=== PATIENT | female | born 1955 | race Caucasian/White ===

== ENCOUNTER 2018-04-24 22:15 | Inpatient (IN) | payer OTHER ==
[~2018-04-24] VITALS: Ht 167.6 cm; Wt 72.0 kg
[~2018-04-24 22:15] MED LIST: AMOX500 PO; CHLO25 PO; HYDACE5 PO; LORA2 PO; PARO10 PO
[2018-04-25 01:21] LABS: BASOPHILS ABSOLUTE AUTO 0.03 K/mm3 (0.00-0.23); BASOPHILS PERCENT AUTO 1 % (0-2); EOSINOPHILS ABSOLUTE AUTO 0.11 K/mm3 (0.00-0.68); EOSINOPHILS PERCENT AUTO 2 % (0-6); Hematocrit 20.9 % (33.0-51.0); Hemoglobin 7.3 g/dL (11.5-16.0); IMMATURE GRAN ABSOLUTE AUTO 0.08 K/mm3 (0.00-0.10); IMMATURE GRAN PERCENT AUTO 2 % (0-1); LYMPHOCYTES ABSOLUTE AUTO 0.94 K/mm3 (0.84-5.20); LYMPHOCYTES PERCENT AUTO 19 % (21-46); MONOCYTES ABSOLUTE AUTO 0.23 K/mm3 (0.16-1.47); MONOCYTES PERCENT AUTO 5 % (4-13); Mean Corpuscular HGB 40.8 pg (26.0-34.0); Mean Corpuscular HGB Conc 34.9 g/dL (31.5-36.5); Mean Corpuscular Volume 117 fL (80-100); Mean Platelet Volume 9.7 fL (9.1-12.4); NEUTROPHILS ABSOLUTE AUTO 3.53 K/mm3 (1.96-9.15); NEUTROPHILS PERCENT AUTO 72 % (41-73); Platelet Count 122 K/mm3 (150-400); RDW Coefficient Variation 15.7 % (11.7-14.2); RDW Standard Deviation 65.2 fL (35.1-46.3); Red Blood Cell Count 1.79 M/mm3 (3.80-5.20); White Blood Cell Count 4.92 K/mm3 (4.00-11.30)
[2018-04-25 01:35] LABS: Alanine Aminotransfer (ALT/SGP 27 U/L (12-78); Albumin, Blood 3.1 g/dL (3.4-5.0); Alk Phos 82 U/L (50-136); Anion Gap 9 mmol/L (6-16); Aspartate Aminotrans (AST/SGOT 41 U/L (12-37); Bilirubin, Total 1.2 mg/dL (0.1-1.0); Blood Urea Nitrogen 13 mg/dL (8-24); Bun/Creatinine Ratio 28.7 (12.0-20.0); CO2, Blood 27 mmol/L (21-32); Calcium, Blood 8.4 mg/dL (8.5-10.1); Chloride, Blood 96 mmol/L (98-108); Creatinine, Blood 0.45 mg/dL (0.40-1.00); Ethanol (Alcohol), Blood, Med <3 mg/dL; Globulin, Blood 3.2 g/dL (2.2-4.0); Glomerular Filtration Rate >60 (60-); Glucose, Blood 307 mg/dL (70-99); Potassium, Blood 3.7 mmol/L (3.5-5.5); Sodium, Blood 132 mmol/L (136-145); Total Protein, Blood 6.3 g/dL (6.4-8.2)
[2018-04-25 02:05] LABS: Source, Urine Catheter
[2018-04-25 02:07] LABS: Bilirubin, Urine Neg (Neg); Blood, Urine 5+ (Neg); Glucose Qualitative, Urine 4+ (Neg); Ketones, Urine 1+ (Neg); Leukocyte Esterase, Urine 2+ (Neg); Nitrite, Urine Pos (Neg); Protein, Urine 3+ (Neg); Specific Gravity, Urine 1.015 (1.003-1.022); Urobilinogen, Urine NORM (Normal)
[2018-04-25 02:12] LABS: Appearance, Urine Hazy (Clear); Color, Urine Amber (P-Yellow); White Blood Cells, Urine TNTC /hpf (0-5)
[2018-04-25 02:14] LABS: Bacteria Many /hpf; Squamous Epithelial Cells Few /hpf (Few)
[2018-04-25 03:25] LABS: IMMATURE RETIC FRACTION 25.7 % (2.3-16.0); RETIC HGB EQUIVALENT 41.3 pg (28.20-36.60); RETICULOCYTE ABSOLUTE 0.0422 M/mm3 (0.0200-0.1100); RETICULOCYTE COUNT PERCENT 2.4 % (0.50-2.50)
[2018-04-25 03:39] LABS: Percent Saturation 56.2 % (15.0-50.0)
--- NOTE | 2018-04-25 04:35 | NUR ---
PT ARRIVAL PT ARRIVED ON UNIT VIA [facility], PT WAS ADMITTED DUE TO UTI, PT HAS HX OF ETOH ABUSE WITH HER LAST DRINK ON 04-24-18 AT APROX 0600. PT WAS TRANSFERED FROM [facility] TO BED WITH SLIDER SHEET. PT IS A&Ox4 BUT VERY SLEEPY FROM MEDICATION GIVEN IN THE ED. TELE WAS PLACED, NSR IN THE 80'S PT'S BP 111/56, PT HAS GENERALIZED TRACE EDEMA AND 1+ TO HER BLLE. PT'S L/S ARE CLEAR BUT DIM T/O, PT NEEDS 2L O2 VIA NC PRN DUE TO DEEP SLEEP AND MEDICATIONS. BT PRESENT AND HYPOACTIVE, ABD IS MOD DISTENDED AND SLIGHTLY FIRM TO PALP BUT NONTENDER. PT HAS VERY PAINFUL RASH/CELLULITIS TO HER EVA AREA, PT STATES THIS HAS BEEN GOING ON FOR MORE THAN 6 MOPNTHS ALONG WITH THE UTI SYMPTOMS. PT'S H&H WAS LOW (SEE LABS) 1 UNIT PRBCS WAS ORDERED TO BE GIVEN. BLOOD CONSENT WAS SIGNED BY PT. CALL LIGHT IN REACH, BED IS LOCKED AND LOW WILL CONTINUE TO MONITOR.
[2018-04-25 05:33] LABS: U Amphetamine Screen Not Detected; U Barbituate Screen Not Detected; U Benzodiazapine Screen Not Detected; U Buprenorphine Screen Not Detected; U Cannabinoids Screen Not Detected; U Cocaine Screen Not Detected; U Methadone Screen Not Detected; U Methamphetamine Screen Not Detected; U Opiates Screen Not Detected; U Oxycodone Screen Not Detected; U Phencyclidine Screen Not Detected; U Propoxyphene Screen Not Detected
--- NOTE | 2018-04-25 07:40 | NUR ---
SHIFT SUMMARY. NO ACUTE CHANGES NOTED SINCE ADMIT, PT IS GETTING 1 UNIT PRBCS WITH NO ISSUES. EVA CARE WAS DONE AFTER PT USED THE BSC TO VOID, EVA AREA IS VERY PAINFUL TO TOUCH, RED AND SWOLLEN. PT'S VS HAVE BEEN STABLE T/O SHIFT. PT HAS NEEDED 2 L O2 VIA NC PRN T/O SHIFT. CALL LIGHT IN REACH, BED IS LOCKED AND LOW WITH BED ALARM ON, WILL CONTINUE TO MONITOR UNTIL REPORT IS GIVEN TO ONCOMING RN.
[2018-04-25 08:49] LABS: Adenovirus Not Detected (NOT DETECT); Bordetella pertussis Not Detected (NOT DETECT); Coronavirus 229E Not Detected (NOT DETECT); Coronavirus HKU1 Not Detected (NOT DETECT); Coronavirus NL63 Not Detected (NOT DETECT); Coronavirus OC43 Not Detected (NOT DETECT); Human Metapneumovirus Not Detected (NOT DETECT); Human Rhinovirus/Enterovirus Not Detected (NOT DETECT); Influenza A Not Detected (NOT DETECT); Influenza A/2009-H1 Not Detected (NOT DETECT); Influenza A/H1 Not Detected (NOT DETECT); Influenza A/H3 Not Detected (NOT DETECT); Influenza B Not Detected (NOT DETECT); Parainfluenza Virus 1 Not Detected (NOT DETECT); Parainfluenza Virus 2 Not Detected (NOT DETECT); Parainfluenza Virus 3 Not Detected (NOT DETECT); Parainfluenza Virus 4 Not Detected (NOT DETECT); Respiratory Syncytial Virus Not Detected (NOT DETECT)
[2018-04-25 08:50] LABS: Chlamydophila pneumoniae Not Detected (NOT DETECT); Mycoplasma pneumoniae Not Detected (NOT DETECT)
[2018-04-25 14:35] LABS: Hematocrit 20.8 % (33.0-51.0); Hemoglobin 7.3 g/dL (11.5-16.0); Mean Corpuscular HGB 38.6 pg (26.0-34.0); Mean Corpuscular HGB Conc 35.1 g/dL (31.5-36.5); Mean Platelet Volume 9.8 fL (9.1-12.4); Platelet Count 108 K/mm3 (150-400); RDW Coefficient Variation 21.9 % (11.7-14.2); Red Blood Cell Count 1.89 M/mm3 (3.80-5.20); White Blood Cell Count 4.74 K/mm3 (4.00-11.30)
[2018-04-25 14:38] LABS: Mean Corpuscular Volume 110 fL (80-100)
[2018-04-25 15:00] LABS: Alanine Aminotransfer (ALT/SGP 23 U/L (12-78); Albumin, Blood 2.6 g/dL (3.4-5.0); Albumin/Globulin Ratio 0.9 (0.8-1.8); Alk Phos 66 U/L (50-136); Anion Gap 10 mmol/L (6-16); Aspartate Aminotrans (AST/SGOT 37 U/L (12-37); Bilirubin, Total 0.9 mg/dL (0.1-1.0); Blood Urea Nitrogen 12 mg/dL (8-24); Bun/Creatinine Ratio 24.8 (12.0-20.0); CO2, Blood 24 mmol/L (21-32); Calcium, Blood 7.7 mg/dL (8.5-10.1); Chloride, Blood 102 mmol/L (98-108); Creatinine, Blood 0.48 mg/dL (0.40-1.00); Globulin, Blood 2.8 g/dL (2.2-4.0); Glomerular Filtration Rate >60 (60-); Glucose, Blood 188 mg/dL (70-99); Potassium, Blood 3.5 mmol/L (3.5-5.5); Sodium, Blood 136 mmol/L (136-145); Total Protein, Blood 5.4 g/dL (6.4-8.2)
--- NOTE | 2018-04-25 15:19 | NUR ---
CALLS PLACED TO DR CORRIGAN 1400- Called Dr Corrigan to request godoy cathter due to extensive skin breakdown in perineal area, as well as pain medication so pt will tolerated catheter insertion. New orders given. 1500- Call placed to Dr Corrigan with lab results, including hemoglobin and hematorcrit. At this time pt has no visible signs of bleeding. Will continue to closely monitor. Requested order for psych consult to evaluate pt's decision making capabilities. New orders given.
--- NOTE | 2018-04-25 15:24 | NUR ---
CONCERNS PRESENTED BY FAMILY AND FRIENDS OF PT Pt's daughter, Luzmaria ([phone]) called unit to request update on patient. The pt gave verbal consent for this RN to speak to Luzmaria. Luzmaria stated that she is concerned about pt returing to her previous living situation. Pt lives alone at home. Pt's spouse is currently hospitalized at [facility]. Luzmaria states concerns that the pt is not taking care of herself and is not able to make her own decisions. Luzmaria states that the pt drinks, smokes cigarettes, and does not eat. She states the pt has not eaten in over a year. Luzmaria states that she or Анна (another daughter of patient) live in [place], but are considering coming to [place] to visit the patient. Luzmaria told this RN that she or Анна are interested in becoming the pt's power of deputy attorney general. Two friends of the patient, Ambreen ([phone]) and Nick Garcia ([phone]) visited the pt for about 45 minutes. The pt gives verbal consent for this RN to speak to Ambreen and Nick Garcia, she then adds "These are two of my favorite people". Ambreen and Nick Garcia state that they know the pt because they used to work with her at the [employer]. They state that they have been concerned for the pt's wellbeing for quite some time. They tell this RN that the pt "has not eaten in over a year" and only drinks alcohol. They state they have asked the pt to go to the hospital several times and the pt has refused up until yesterday. They tell this RN they have asked for wellfare checks on the pt several times because they have been concerned for their wellbeing. They state the pt has not showered in over 6 months due to fear of falling. Patti from social work supervisor notified of concerns expressed by the visitor and by the pt's daughters.
--- NOTE | 2018-04-25 19:03 | NUR ---
SHIFT SUMMARY Pt not medicated for alcohol withdrawal this shift. Pt oriented to self and place. Does not know exact date but verbalizes that it is "April" and "2018". Pt is tremulous, however she states this is baseline for her. Pt on room air for entire shift. Pt does not have any signs of bleeding at this time. Pt has profound perineal excoriations that have photgraphic documentation in the chart. Excoriations have been cleansed. Perineal area cleaned with Skintegrity wound cleanser and sterile gauze. Labial and pubic excoriations are open to air. Excoriation to gluteal fold cleaned and then nonadherent supra-absorbant mepilex placed in fold. Stiles catheter placed to facilitate healing of profound perineal excoriations, as pt is incontinent of urine at baseline. Pt had a shower early today. QUAIL FARMER placed detangler in the patient's hair, along with conditioner to remove matted hair. Attempts to remove tangles was futile, therefore the hair was cut with scissors. Pt was agreeable to having hair cut.
--- NOTE | 2018-04-26 00:22 | NUR ---
PHYSICIAN COMMUNICATION DR. VARGHESE NOTIFIED CRANBERRY COLORED URINE NOTED. PAIN MANAGEMENT DISCUSSED. ORDERS ENTERED. WCTM UNTIL REPORT TO DAY SHIFT RN.
--- NOTE | 2018-04-26 06:46 | NUR ---
SHIFT SUMMARY PT A&O X4 T/O SHIFT. HIGHEST CIWA 6. PAIN IN BACK AND EVA-AREA MANAGE PER EMAR. EVA-AREA OPEN TO AIR. WEANED TO 1.5 L O2 THIS AM. PT BED MOBILE, REPOSITIONED SELF AND REPOSITIONED WITH ASSIST T/O SHIFT. UP TO BSC WITH ASSIT X1. PAUL PATENT; URINE CHANGED FROM CRISTIAN TO CRANBERRY WITH SMALL CLOTS BACK TO CRISTIAN/TEA; SEE PHYSICIAN COMMUNICATION NOTE. PT QUITE WITH CALL LIGHT IN REACH; AT THIS TIME.
[2018-04-26 07:32] LABS: Hematocrit 20.5 % (33.0-51.0); Hemoglobin 7.1 g/dL (11.5-16.0); Mean Corpuscular HGB 37.8 pg (26.0-34.0); Mean Corpuscular HGB Conc 34.6 g/dL (31.5-36.5); Mean Corpuscular Volume 109 fL (80-100); Mean Platelet Volume 10.3 fL (9.1-12.4); Platelet Count 102 K/mm3 (150-400); RDW Coefficient Variation 21.4 % (11.7-14.2); RDW Standard Deviation 83.2 fL (35.1-46.3); Red Blood Cell Count 1.88 M/mm3 (3.80-5.20); White Blood Cell Count 3.71 K/mm3 (4.00-11.30)
--- NOTE | 2018-04-26 10:30 | NUR ---
O2 NEEDS PT TOLERATING 1L NC WELL. SATS 92-95%. ATTEMPTED RA, PATIENT MAINTAINED FOR 3 MINS BEFORE DESATTING TO 88% WHILE AWAKE AND ALERT.
--- NOTE | 2018-04-26 11:04 | NUR ---
Advance Directive education/Spiritual care visit conducted. Patient was sitting up in bed and alert when I entered the patient's room. I discussed with patient the importance and process of an advance directive. Patient stated that she is not interested in talking about this at this time but realizes that it will be an important conversation to have with her going forward. I then focused on the emotional/spiritual needs of the patient. Patient began to cry and told me that there are many things that she needs to own concerning the damage she has caused for herself and those close to her (mostly her ). Patient also said that her was in another hospital having surgery this day. I listened empathically, quoted scriptures that speak of God's jasmine, help and love. I also provided pastoral cousel, companionship and prayer. Patient responded well and displayed evidence of restored son and hope. Patient blessed me for the work I do. I expressed my gratitude. prayer
--- NOTE | 2018-04-26 18:31 | NUR ---
SHIFT SUMMARY PT WAS ALERT AND AWAKE FOR HALF OF SHIFT BUT THIS AFTERNOON HAS BEEN MORE DROWSY AND REQUESTING TO NAP. ABD HAS BECOME MORE DISTENDED BUT STILL SOFT. ATTEMPTED TO HAVE BM ON BSC BUT UNSUCCESSFUL. NO S/S OF ETOH W/D. EVA AREA VERY TENDER.
[2018-04-27 04:04] LABS: Hematocrit 25.4 % (33.0-51.0); Hemoglobin 8.7 g/dL (11.5-16.0); Mean Corpuscular HGB 36.7 pg (26.0-34.0); Mean Corpuscular HGB Conc 34.3 g/dL (31.5-36.5); Mean Corpuscular Volume 107 fL (80-100); Mean Platelet Volume 10.3 fL (9.1-12.4); NRBC ABSOLUTE 0.02 K/mm3 (0.00-0.02); NRBC Auto 0.5 /100 WBC (0.0-0.2); Platelet Count 109 K/mm3 (150-400); RDW Coefficient Variation 22.4 % (11.7-14.2); RDW Standard Deviation 84.9 fL (35.1-46.3); Red Blood Cell Count 2.37 M/mm3 (3.80-5.20); White Blood Cell Count 3.95 K/mm3 (4.00-11.30)
[2018-04-27 04:23] LABS: Anion Gap 7 mmol/L (6-16); Blood Urea Nitrogen 9 mg/dL (8-24); Bun/Creatinine Ratio 18.9 (12.0-20.0); CO2, Blood 28 mmol/L (21-32); Calcium, Blood 7.6 mg/dL (8.5-10.1); Chloride, Blood 104 mmol/L (98-108); Creatinine, Blood 0.48 mg/dL (0.40-1.00); Glomerular Filtration Rate >60 (60-); Glucose, Blood 196 mg/dL (70-99); Potassium, Blood 3.3 mmol/L (3.5-5.5); Sodium, Blood 139 mmol/L (136-145)
--- NOTE | 2018-04-27 06:48 | NUR ---
PCU NOC SHIFT SUMMARY PATIENT ALERT AND ORIENTED TO SELF AND LOCATION. PATIENT VERY QUIET AND DOES NOT INTERACT WHEN PROMPTED WITH DIRECT ANSWERS. PATIENT IS DECONDITIONED WITH POOR HEALTH HYGIENE NOTED: MISSING, BROKE TEETH; EXCORIATED VAGINAL AND GROIN FOLEDS (INNER AND OUTER); BRUISING ON ALL EXTREMETIES; DECREASED STRENGTH. PATIENTS CIWA NEGATIVE T/O SHIFT. PATIENT FOLLOWS DIRECTION WELL. VSS. NO ACUTE FINDINGS NOTED T/O SHIFT.
--- NOTE | 2018-04-27 10:45 | NUR ---
This morning, the pt was having some significant anxiety, expressed verbally and she appeared nervous. scene shifter stated during bedside report that it was the "most anxious that she has appeared all shift" at that time. The pt also was noted to have a very noticeable tremor in her hands. CIWA was measured at 5, so I did administer Librium per prn orders with her morning medications during breakfast time. The pt had also c/o cramps in her right foot, which were somewhat relieved with some foot exercises which I did with her while she was still in the bed. However, noted also that the pt's potassium level was low this morning and Dr. Corrigan had already ordered an oral potassium replacement, so I explained to the pt that this would probably also help to relieve her cramps. At 1000 I met two of the patient's daughters who are here from [place]. Extensive conversation with them, covering information about pt's current medications (specifically insulin, ativan, fentanyl, lidocaine patch, corticosteroid cream, librium) and the indications and rationale for their prn use, and some of the pt's medical problems such as elevated glucose and possible diabetes per Dr. Corrigan, the hospitalist. The daughters explained to me that the pt has been an alcoholic all of their lives, and has suffers from severe anxiety. We discussed the treatment plan just briefly.
--- NOTE | 2018-04-27 15:20 | NUR ---
The pt appears to be sleeping very comfortably. Her respirations are even and unlabored. Her daughter Анна, who told me she is a respiratory therapist, noted this morning the pt was tachypneic. Анна tells me that the pt has been smoking for many years, and she suspects that she has COPD. The question also of the tachypnea being related to the pt's history of anxiety, and also expression of anxious feelings this morning was also discussed with family this morning. At this time, the pt's respirations are even, unlabored, belly breathing, and at 28-32/minute, with HOB at 15 degrees. No apneic periods noted.
--- NOTE | 2018-04-27 15:30 | NUR ---
1200: IV Dressing noted to be loose, and coming up at the edges. Insertion site is not compromised, but tubing is kinked. Removed old dressing and redressed the site using aseptic technique. The pt tolerated well as she had just also received pain medication.
--- NOTE | 2018-04-27 22:00 | NUR ---
PCU TRANSFER TO MEDICAL FLOOR RM 302 PATIENT ALERT AND ORIENTED TO SELF, LOCATION AND MONTH. PATIENT DENIES ANY PAIN. PAUL CATH DRAINING CLOUDY YELLOW URINE WITH SEDIMENT AND AT TIME DARK RED CLOTS - IRRIGATED PAUL WITH 20 CC'S NS. PATIENTS VSS. PATIENT AND FAMILY CALLED EDUCATED ON TRANSFER TO ROOM 302. PATIENT LEFT UNIT IN NO ACUTE DISTRESS. REPORTED OFF TO MEDICAL FLOOR RN.
[2018-04-28 04:57] LABS: Hematocrit 29.4 % (33.0-51.0); Hemoglobin 9.7 g/dL (11.5-16.0)
[2018-04-28 05:30] LABS: Anion Gap 8 mmol/L (6-16); Blood Urea Nitrogen 6 mg/dL (8-24); Bun/Creatinine Ratio 13.6 (12.0-20.0); CO2, Blood 27 mmol/L (21-32); Chloride, Blood 103 mmol/L (98-108); Creatinine, Blood 0.44 mg/dL (0.40-1.00); Glomerular Filtration Rate >60 (60-); Glucose, Blood 179 mg/dL (70-99); Magnesium, Blood 1.8 mg/dL (1.6-2.4); Phosphorus, Blood 2.4 mg/dL (2.5-4.9); Potassium, Blood 3.6 mmol/L (3.5-5.5); Sodium, Blood 138 mmol/L (136-145)
--- NOTE | 2018-04-28 06:19 | NUR ---
SHIFT SUMMARY PT TRANSFERRED TO ROOM APPROX 2150. SBA TO BED FROM BED. PAUL DRAINING DARK CONCENTRATED-LOOKING URINE. ENCOURAGED MORE ORAL INTAKE. AFFECT ANXIOUS FEARFUL. C/O IN EVA AREA AND MEDICATED PER EMAR. SHE WAS ABLE TO DOZE ON AND OFF T/O NOC. CALL LIGHT IN REACH
[2018-04-28 09:10] LABS: HBSAG SCREEN Negative (Negative); HEP B CORE AB, TOT Negative (Negative); HEP C VIRUS AB <0.1 (0.0-0.9)
--- NOTE | 2018-04-28 18:19 | NUR ---
SHIFT SUMMARY. A&OX2-3 PLEASANT AND COOPERATIVE. PT IS AWARE OF LIMITATIONS ALTHOUGH HAS OCCASSIONAL FORGETFULLNESS, BED ALARM ACTIVATED FOR SAFETY. PT WITH C/O PAIN TO LOWER BACK THIS AM, RELIEVED WITH APAP AND LIDOCAINE PATCH. PT DENIES SOB, N/V. PT RECIEVED SHOWER TODAY. DAUGHTERS AT BEDSIDE AND REPORT THAT PT HAS ALOT OF ANXIETY ABOUT SHOWERING AND STOPPED TAKING SHOWERS 6 MONTHS AGO. RECEIVED ORDER FOR PRN ATIVAN FOR ANXIETY, GIVEN JUST PRIOR TO SHOWER. DAUGHTERS AT BEDSIDE PERIODICALLY THROUGHOUT DAY, THEY ARE HEADED BACK HOME TO [place] TOMORROW. NO NEW CHANGES.
[2018-04-29 04:56] LABS: BASOPHILS ABSOLUTE AUTO 0.05 K/mm3 (0.00-0.23); BASOPHILS PERCENT AUTO 1 % (0-2); EOSINOPHILS ABSOLUTE AUTO 0.33 K/mm3 (0.00-0.68); EOSINOPHILS PERCENT AUTO 6 % (0-6); Hematocrit 27.5 % (33.0-51.0); IMMATURE GRAN ABSOLUTE AUTO 0.74 K/mm3 (0.00-0.10); IMMATURE GRAN PERCENT AUTO 12 % (0-1); LYMPHOCYTES ABSOLUTE AUTO 1.14 K/mm3 (0.84-5.20); LYMPHOCYTES PERCENT AUTO 19 % (21-46); MONOCYTES ABSOLUTE AUTO 0.53 K/mm3 (0.16-1.47); MONOCYTES PERCENT AUTO 9 % (4-13); Mean Corpuscular HGB 36.6 pg (26.0-34.0); Mean Corpuscular HGB Conc 32.7 g/dL (31.5-36.5); Mean Platelet Volume 9.9 fL (9.1-12.4); NEUTROPHILS ABSOLUTE AUTO 3.23 K/mm3 (1.96-9.15); NEUTROPHILS PERCENT AUTO 54 % (41-73); NRBC ABSOLUTE 0.21 K/mm3 (0.00-0.02); NRBC Auto 3.5 /100 WBC (0.0-0.2); Platelet Count 106 K/mm3 (150-400); RDW Coefficient Variation 21.5 % (11.7-14.2); RDW Standard Deviation 86.5 fL (35.1-46.3); Red Blood Cell Count 2.46 M/mm3 (3.80-5.20); White Blood Cell Count 6.02 K/mm3 (4.00-11.30)
[2018-04-29 04:57] LABS: Mean Corpuscular Volume 112 fL (80-100)
[2018-04-29 05:17] LABS: BAND PERCENT MAN 5 % (0-8); BASOPHILS ABSOLUTE MAN 0.06 K/mm3 (0.00-0.23); BASOPHILS PERCENT MAN 1 % (0-2); EOSINOPHILS ABSOLUTE MAN 0.18 K/mm3 (0.00-0.68); EOSINOPHILS PERCENT MAN 3 % (0-6); LYMPHOCYTES ABSOLUTE MAN 0.78 K/mm3 (0.84-5.20); LYMPHOCYTES PERCENT MAN 13 % (21-46); METAMYELOCYTE ABSOLUTE MAN 0.06 K/mm3 (0.00-0.00); METAMYELOCYTE PERCENT MAN 1 % (0-0); MONOCYTES ABSOLUTE MAN 0.24 K/mm3 (0.16-1.47); MONOCYTES PERCENT MAN 4 % (4-13); MYELOCYTE ABSOLUTE MAN 0.06 K/mm3 (0.00-0.00); MYELOCYTE PERCENT MAN 1 % (0-0); NEUTROPHILS ABSOLUTE MAN 4.57 K/mm3 (1.96-9.15); SEG NEUTROPHILS PERCENT MAN 71 % (41-73); TOTAL CELLS COUNTED 100
[2018-04-29 05:18] LABS: PROMYELOCYTE ABSOLUTE MAN 0.06 K/mm3 (0.00-0.00); PROMYELOCYTE PERCENT MAN 1 % (0-0)
--- NOTE | 2018-04-29 06:13 | NUR ---
SHIFT SUMMARY PT ANXIOUS AND SLOW TO RESPOND. PAUL WAS DRAINING 100CC BLOOD. BLADDER SCAN DIDN'T SHOW ANY URINE IN BLADDER. IRRIGATED PAUL AND A COUPLE BLOOD CLOT STRANDS CAME OUT. DR PENA ORDERED 1 LIT @ 100 OT. PAUL DRAINING DARK RED URINE. SHE WAS ABLE TO SLEEP AFTER GETTING PO ATIVAN FOR ANXIETY. BED ALARM IN USE CALL LIGHT IN REACH
--- NOTE | 2018-04-29 11:27 | NUR ---
NOTIFIED DR. FAULKNER OF BLOOD IN CATHETER, RECIEVED ORDER TO FLUSH CATHETER WITH 500ML OF STERILE WATER, PT WAS ONLY ABLE TO TOLERATE 60ML FLUSH.
--- NOTE | 2018-04-29 16:54 | NUR ---
SHIFT SUMMARY. PT REPORTS THAT PAIN AT EVA AREA, URETHRA AREA, AND LOWER BACK HAS IMPROVED FROM YESTERDAY. PT REQUIRED ONE DOSE OF APAP AND REPORTED IMPROVEMENT OF PAIN. NO N/V, SOB. PT WITH SOME ANXIETY AT TIMES, DR. FAULKNER STARTED LIBRIUM, 10MG PO TID, PT APPEARS MORE CALM AFTER FIRST DOSE. DAUGHTERS HAVE RETURNED TO [place] TODAY. NASEEM, THE PT'S OLDEST DAUGHTER AND WHO REQUESTS TO BE PT'S GUARDIAN, REPORTS THAT SHE WILL RETURN MONDAY OR MONDAY FOR ADVANCED CARE PLANNING WITH [employer]OO'S PHONE NUMBER IS [phone]. PT CONTINUES WITH BLOOD TINGED URINE WITH SMALL CLOTS. PT DID NOT TOLERATE FLUSH WITH 60ML STERILE WATER. NO OTHER CHANGES.
[2018-04-30 05:03] LABS: Hemoglobin 8.5 g/dL (11.5-16.0); Mean Corpuscular HGB 36.6 pg (26.0-34.0); Mean Corpuscular HGB Conc 32.7 g/dL (31.5-36.5); Mean Corpuscular Volume 112 fL (80-100); Mean Platelet Volume 9.6 fL (9.1-12.4); NRBC ABSOLUTE 0.09 K/mm3 (0.00-0.02); NRBC Auto 1.5 /100 WBC (0.0-0.2); Platelet Count 109 K/mm3 (150-400); RDW Coefficient Variation 22.4 % (11.7-14.2); RDW Standard Deviation 90.1 fL (35.1-46.3); Red Blood Cell Count 2.32 M/mm3 (3.80-5.20); White Blood Cell Count 5.83 K/mm3 (4.00-11.30)
--- NOTE | 2018-04-30 05:21 | NUR ---
SHIFT SUMMARY PT A/O SLOW TO RESPOND. SBA TO BA FOR SMALL FORMED BM. GET SOB C EXCERTION. SHE WAS ABLE TO SLEEP ON AND OFF T/O NIGHT. CALL LIGHT IN REACH
[2018-04-30 05:31] LABS: Alanine Aminotransfer (ALT/SGP 19 U/L (12-78); Albumin, Blood 2.5 g/dL (3.4-5.0); Albumin/Globulin Ratio 0.9 (0.8-1.8); Alk Phos 63 U/L (50-136); Anion Gap 6 mmol/L (6-16); Aspartate Aminotrans (AST/SGOT 24 U/L (12-37); Bilirubin, Total 0.7 mg/dL (0.1-1.0); Blood Urea Nitrogen 6 mg/dL (8-24); Bun/Creatinine Ratio 15.7 (12.0-20.0); CO2, Blood 27 mmol/L (21-32); Calcium, Blood 7.8 mg/dL (8.5-10.1); Chloride, Blood 106 mmol/L (98-108); Creatinine, Blood 0.38 mg/dL (0.40-1.00); Globulin, Blood 2.9 g/dL (2.2-4.0); Glomerular Filtration Rate >60 (60-); Glucose, Blood 115 mg/dL (70-99); Magnesium, Blood 1.8 mg/dL (1.6-2.4); Potassium, Blood 3.6 mmol/L (3.5-5.5); Sodium, Blood 139 mmol/L (136-145); Total Protein, Blood 5.4 g/dL (6.4-8.2)
[2018-04-30 05:32] LABS: BAND PERCENT MAN 5 % (0-8); BASOPHILS ABSOLUTE MAN 0.17 K/mm3 (0.00-0.23); BASOPHILS PERCENT MAN 3 % (0-2); EOSINOPHILS ABSOLUTE MAN 0.23 K/mm3 (0.00-0.68); EOSINOPHILS PERCENT MAN 4 % (0-6); LYMPHOCYTES ABSOLUTE MAN 1.04 K/mm3 (0.84-5.20); LYMPHOCYTES PERCENT MAN 18 % (21-46); METAMYELOCYTE ABSOLUTE MAN 0.17 K/mm3 (0.00-0.00); METAMYELOCYTE PERCENT MAN 3 % (0-0); MONOCYTES ABSOLUTE MAN 0.58 K/mm3 (0.16-1.47); MONOCYTES PERCENT MAN 10 % (4-13); MYELOCYTE ABSOLUTE MAN 0.23 K/mm3 (0.00-0.00); MYELOCYTE PERCENT MAN 4 % (0-0); NEUTROPHILS ABSOLUTE MAN 3.38 K/mm3 (1.96-9.15); SEG NEUTROPHILS PERCENT MAN 53 % (41-73); TOTAL CELLS COUNTED 100
--- NOTE | 2018-04-30 19:23 | NUR ---
SUMM- PT A/O X3, NOT ORIENTED TO DETAILS OF DATE IN APRIL. WORKED WITH PT/OT TODAY, IS SEVERELY WEAK. TOLERATING FOOD AND FLUIDS PUREED DIET RELATED TO POOR DENTAL. PILLS CRUSHED, TAKES A LONG TIME TO SWALLOW FOOD. PAIN RELATED TO EXCORIATION IN GROIN AREA, REDDENED AND INFLAMMED, NO OPEN AREAS. PAUL CATH CARE, AND AQUAPHOR TO AREA ORDERED. TYLENOL GIVEN FOR PAIN WITH MIN EFFECT. PAUL CONT WITH CRANBERRY COLOR URINE AND OCC SMALL CLOT. OCC PERIODS OF ANXIETY, LIBRIUM SEEMS TO HELP. REPORTED TO NOC RN.
--- NOTE | 2018-05-01 06:22 | NUR ---
SHIFT SUMMARY: PT CONT TO HAVE CRISTIAN, DARK URINE c CLOTS. PT IS A&O X 3, ANXIOUS. BECOMES SOB c EXERTION, TACHYPNEIC. 2L VIA NC PLACED, LS CLEAR. POOR DENTITION, PT REPORTS PAIN EATING AND SWALLOWING. PAUL IN PLACE TO PROTECT EVA AREA SKIN, SKIN IS RED, INFLAMED, OPEN-WOUND. NYSTATIN AND AQUACEL APPLIED PER ORDERS. MEDS CRUSHED IN JOHN PUDDING; CBG ACHS; 145 TONIGHT; NO COV INDICATED. NO OTHER CHANGES TO REPORT. WILL CONT TO MONITOR AND PROVIDE CARE UNTIL PRESUMED BY ONCOMING RN.
[2018-05-02 05:08] LABS: BASOPHILS ABSOLUTE AUTO 0.02 K/mm3 (0.00-0.23); BASOPHILS PERCENT AUTO 0 % (0-2); EOSINOPHILS ABSOLUTE AUTO 0.42 K/mm3 (0.00-0.68); EOSINOPHILS PERCENT AUTO 6 % (0-6); Hematocrit 30.9 % (33.0-51.0); Hemoglobin 9.6 g/dL (11.5-16.0); IMMATURE GRAN ABSOLUTE AUTO 0.12 K/mm3 (0.00-0.10); IMMATURE GRAN PERCENT AUTO 2 % (0-1); LYMPHOCYTES ABSOLUTE AUTO 0.86 K/mm3 (0.84-5.20); LYMPHOCYTES PERCENT AUTO 11 % (21-46); MONOCYTES ABSOLUTE AUTO 0.77 K/mm3 (0.16-1.47); MONOCYTES PERCENT AUTO 10 % (4-13); Mean Corpuscular HGB Conc 31.1 g/dL (31.5-36.5); Mean Corpuscular Volume 113 fL (80-100); Mean Platelet Volume 10.2 fL (9.1-12.4); NEUTROPHILS ABSOLUTE AUTO 5.36 K/mm3 (1.96-9.15); NEUTROPHILS PERCENT AUTO 71 % (41-73); Platelet Count 149 K/mm3 (150-400); RDW Coefficient Variation 21.3 % (11.7-14.2); RDW Standard Deviation 88.1 fL (35.1-46.3); Red Blood Cell Count 2.74 M/mm3 (3.80-5.20); White Blood Cell Count 7.55 K/mm3 (4.00-11.30)
[2018-05-02 05:39] LABS: Alanine Aminotransfer (ALT/SGP 26 U/L (12-78); Albumin, Blood 2.7 g/dL (3.4-5.0); Albumin/Globulin Ratio 0.8 (0.8-1.8); Alk Phos 76 U/L (50-136); Anion Gap 7 mmol/L (6-16); Aspartate Aminotrans (AST/SGOT 45 U/L (12-37); Blood Urea Nitrogen 9 mg/dL (8-24); Bun/Creatinine Ratio 15.4 (12.0-20.0); CO2, Blood 26 mmol/L (21-32); Calcium, Blood 8.2 mg/dL (8.5-10.1); Chloride, Blood 106 mmol/L (98-108); Creatinine, Blood 0.59 mg/dL (0.40-1.00); Globulin, Blood 3.3 g/dL (2.2-4.0); Glomerular Filtration Rate >60 (60-); Glucose, Blood 101 mg/dL (70-99); Potassium, Blood 4.5 mmol/L (3.5-5.5); Sodium, Blood 139 mmol/L (136-145)
--- NOTE | 2018-05-02 06:08 | NUR ---
SHIFT SUMMARY: PAUL CATH DC'D EARLIER IN DAY. PT HAS FIRST POST-PAUL VOID @ 2100. CRANBERRY COLORED URINE. REDNESS AND SWELLING TO EVA AREA, LABIA, AND SKIN FOLDS. NO OPEN WOUNDS NOTED. LIDOCAINE GEL, AQUACEL, AND NYSTATIN CREAM ADMINISTERED PER ORDERS. TREATED FOR PAIN TO AFFECTED AREA c IV TORADOL 1X. ON 2L VIA NC PT BECOMES SOB c EXERTION AND ANXIOUS. EXP WHEEZE IN UPPER LUNG SANTIAGO; DIMINISHED IN THE BASES. WILL CONT TO MONITOR AND PROVIDE CARE UNTIL PRESUMED BY ONCOMING RN.
--- NOTE | 2018-05-02 19:25 | NUR ---
PT VERY DROWSY THIS A.M. AFTER BREAKFAST AND FELL ASLEEP AFTER LAYING BACK DOWN. ASSISTED TO BATHROOM AND WAS VERY WEAK AND ALMOST DIDN'T REACH TOILET THIS MORNING PRIOR TO BREAKFAST. MORE AWAKE THIS AFTERNOON AND ABLE TO CONVERSE WITH STAFF. EVA AREA REMAINS SWOLLEN AND RED AND TENDER. HAS SMALL CLOTS AND CRANBERRY COLORED URINE. INCREASED RESP NOTED TODAY BUT EVEN AND DENIES RESP DISTRESS. ABDOMEN APPEARS MORE DISTENDED THIS AFTERNOON AND SPOKE WITH MD ABOUT IT. SOFT AND NONTENDER AND TYMPANIC.
--- NOTE | 2018-05-03 06:12 | NUR ---
SHIFT SUMMARY PT VERY LETHARGIC SLEEPY. INCONT AT TIMES BUT ALSO CONT AND SBA C GAIT BELT TO BSC. URINE VERY DARK ORANGE IN COLOR. NO CLOTS. 1L O2 NC. SHE SLEPT THROUGH NIGHT. BED ALARM IN USE
[2018-05-03 08:00] LABS: BASOPHILS ABSOLUTE AUTO 0.03 K/mm3 (0.00-0.23); BASOPHILS PERCENT AUTO 0 % (0-2); EOSINOPHILS ABSOLUTE AUTO 0.45 K/mm3 (0.00-0.68); EOSINOPHILS PERCENT AUTO 5 % (0-6); Hematocrit 28.5 % (33.0-51.0); Hemoglobin 8.8 g/dL (11.5-16.0); IMMATURE GRAN ABSOLUTE AUTO 0.07 K/mm3 (0.00-0.10); IMMATURE GRAN PERCENT AUTO 1 % (0-1); LYMPHOCYTES ABSOLUTE AUTO 0.74 K/mm3 (0.84-5.20); LYMPHOCYTES PERCENT AUTO 8 % (21-46); MONOCYTES ABSOLUTE AUTO 0.93 K/mm3 (0.16-1.47); MONOCYTES PERCENT AUTO 11 % (4-13); Mean Corpuscular HGB 34.2 pg (26.0-34.0); Mean Corpuscular HGB Conc 30.9 g/dL (31.5-36.5); Mean Corpuscular Volume 111 fL (80-100); Mean Platelet Volume 9.9 fL (9.1-12.4); NEUTROPHILS ABSOLUTE AUTO 6.64 K/mm3 (1.96-9.15); NEUTROPHILS PERCENT AUTO 75 % (41-73); Platelet Count 233 K/mm3 (150-400); RDW Coefficient Variation 20.8 % (11.7-14.2); Red Blood Cell Count 2.57 M/mm3 (3.80-5.20); White Blood Cell Count 8.86 K/mm3 (4.00-11.30)
[2018-05-03 08:25] LABS: Alanine Aminotransfer (ALT/SGP 23 U/L (12-78); Albumin, Blood 2.4 g/dL (3.4-5.0); Albumin/Globulin Ratio 0.7 (0.8-1.8); Alk Phos 65 U/L (50-136); Anion Gap 5 mmol/L (6-16); Aspartate Aminotrans (AST/SGOT 22 U/L (12-37); Bilirubin, Total 1.2 mg/dL (0.1-1.0); Blood Urea Nitrogen 11 mg/dL (8-24); Bun/Creatinine Ratio 22.4 (12.0-20.0); CO2, Blood 28 mmol/L (21-32); Chloride, Blood 107 mmol/L (98-108); Creatinine, Blood 0.49 mg/dL (0.40-1.00); Globulin, Blood 3.3 g/dL (2.2-4.0); Glomerular Filtration Rate >60 (60-); Glucose, Blood 121 mg/dL (70-99); Sodium, Blood 140 mmol/L (136-145); Total Protein, Blood 5.7 g/dL (6.4-8.2)
--- NOTE | 2018-05-03 18:34 | NUR ---
SHIFT SUMMARY PT MORE AWAKE TODAY AND ABLE TO FEED HERSELF WITH LESS TROUBLE. REMAINS MORE WEAK AND USING BEDSIDE COMMODE WITH 2 PEOPLE RATHER THAN TO TOILET WITH FWW. RESP IMPROVING IN A.M. BUT WORSENED THIS AFTERNOON. HEART RATE AND TEMP UP WELL. ROOM VERY WARM AND PT VERY WARM WELL. TYLENOL GIVEN AND MD NOTIFIED OF FEVER. BLOOD CULTURES DRAWN. VS MONITERED AND VEW SCORE WENT DOWN TO 2 WITH TEMP IMPROVING AND RESP. VERY ALERT AT SUPPERTIME AND HAVING A FULL CONVERSATION WITH STAFF. SKIN COOL WELL.
[2018-05-04 04:26] LABS: BASOPHILS ABSOLUTE AUTO 0.06 K/mm3 (0.00-0.23); BASOPHILS PERCENT AUTO 1 % (0-2); EOSINOPHILS PERCENT AUTO 7 % (0-6); Hemoglobin 8.4 g/dL (11.5-16.0); IMMATURE GRAN ABSOLUTE AUTO 0.06 K/mm3 (0.00-0.10); IMMATURE GRAN PERCENT AUTO 1 % (0-1); LYMPHOCYTES ABSOLUTE AUTO 0.82 K/mm3 (0.84-5.20); LYMPHOCYTES PERCENT AUTO 11 % (21-46); MONOCYTES ABSOLUTE AUTO 0.87 K/mm3 (0.16-1.47); MONOCYTES PERCENT AUTO 12 % (4-13); Mean Corpuscular HGB 33.3 pg (26.0-34.0); Mean Corpuscular HGB Conc 31.1 g/dL (31.5-36.5); Mean Platelet Volume 9.6 fL (9.1-12.4); NEUTROPHILS PERCENT AUTO 68 % (41-73); Platelet Count 286 K/mm3 (150-400); RDW Coefficient Variation 20.8 % (11.7-14.2); RDW Standard Deviation 80.1 fL (35.1-46.3); Red Blood Cell Count 2.52 M/mm3 (3.80-5.20); White Blood Cell Count 7.21 K/mm3 (4.00-11.30)
[2018-05-04 04:30] LABS: Mean Corpuscular Volume 107 fL (80-100)
[2018-05-04 04:47] LABS: Alanine Aminotransfer (ALT/SGP 21 U/L (12-78); Albumin, Blood 2.4 g/dL (3.4-5.0); Albumin/Globulin Ratio 0.7 (0.8-1.8); Alk Phos 69 U/L (50-136); Anion Gap 7 mmol/L (6-16); Aspartate Aminotrans (AST/SGOT 25 U/L (12-37); Bilirubin, Total 0.7 mg/dL (0.1-1.0); Blood Urea Nitrogen 12 mg/dL (8-24); Bun/Creatinine Ratio 22.2 (12.0-20.0); CO2, Blood 26 mmol/L (21-32); Calcium, Blood 7.8 mg/dL (8.5-10.1); Chloride, Blood 106 mmol/L (98-108); Creatinine, Blood 0.54 mg/dL (0.40-1.00); Globulin, Blood 3.3 g/dL (2.2-4.0); Glomerular Filtration Rate >60 (60-); Glucose, Blood 134 mg/dL (70-99); Potassium, Blood 3.6 mmol/L (3.5-5.5); Sodium, Blood 139 mmol/L (136-145); Total Protein, Blood 5.7 g/dL (6.4-8.2)
--- NOTE | 2018-05-04 06:01 | NUR ---
SHIFT SUMMARY PT MUCH MORE AWAKE AND ALERT COMPARED TO YESTERDAY. STILL KIND OF SLOW TO RESPOND BUT QUICKER THAN THE NIGHT BEFORE. INCONT AT TIMES OF LIQUID STOOL. 2 PERSON SBA Nick WALKER TO BSC. NO CLOTS SEEN IN URINE. 2L O2 NC. CALL LIGHT IN REACH.
--- NOTE | 2018-05-04 17:07 | NUR ---
PT REQUESTING THAT HER MEDICATIONS BE CRUSHED VERY FINE, EVEN SMALL PIECES CAN BOTHER HER. WILL PASS ALONG TO ONCOMING RN. NO ACUTE CHANGES NOTED THIS SHIFT, WILL CONTINUE TO MONITOR AND REPORT TO ONCOMING RN
[2018-05-05 00:44] LABS: Source, Urine Clean Catch
[2018-05-05 00:50] LABS: Appearance, Urine Cloudy (Clear); Bilirubin, Urine Neg (Neg); Blood, Urine 5+ (Neg); Color, Urine Yellow (P-Yellow); Glucose Qualitative, Urine Neg (Neg); Ketones, Urine Neg (Neg); Leukocyte Esterase, Urine 3+ (Neg); Nitrite, Urine Neg (Neg); Protein, Urine 3+ (Neg); Urobilinogen, Urine 1+ (Normal)
[2018-05-05 01:08] LABS: Bacteria Few /hpf; Red Blood Cells, Urine TNTC /hpf (0-2); Squamous Epithelial Cells Not Seen /hpf (Few); White Blood Cells, Urine TNTC /hpf (0-5)
--- NOTE | 2018-05-05 06:40 | NUR ---
SHIFT SUMMARY: PT IS ALERT AND ORIENTED. PT IS CALM AND COOPERATIVE WITH CARE. PT CALLS APPROPRIATELY. PT IS A ONE PERSON ASSIST TO THE BATHROOM. PT DENIES PAIN, NAUSEA, AND VOMITING. PT IS SOB UPON EXERTION. PT SLEPT INTERMITTENTLY THROUGHOUT THE NIGHT. NO ACUTE CHANGES OR COMPLICATIONS THIS SHIFT. BED IN LOW POSITION, CALL LIGHT WITHIN REACH. WILL REPORT TO DAY NURSE.
--- NOTE | 2018-05-05 15:47 | NUR ---
SUMMARY PT IS A/O X4, SOMEWHAT PALE, STATE WEAK/FATIGUED. AFFECT SOMEWHAT FLAT, KIND/COOPERATIVE. GAIT WEAK, 1 ASSIST W FWW. SHE HAD H/A THIS AM, RELIEVED W TYLENOL. PSYCHOLOGICAL OPERATIONS ASSIST HER TO SHOWER, SHE WAS UP IN CHAIR FOR AWHILE DURING LUNCH HRS. PHYTHER IN FOR EVAL/TX. NYSTATIN & AQUAPHOR APPLIED TO EVA AREA RASH/REDNESS, APPEARS IMPROVING. DAUGHTER IN TO VISIT TODAY, SUPPORTIVE. VSS.
--- NOTE | 2018-05-06 04:30 | NUR ---
SHIFT SUMMARY: PT IS ALERT AND ORIENTED. PT IS CALM AND COOPERATIVE WITH CARE. PT CALLS APPROPRIATELY. PT IS A STANDBY ASSIST TO THE BATHROOM. FAMILY IN VISITING AT THE START OF THE NIGHT. PT REPORTED HEADACHE, GAVE PRN TYLENOL. PT REPORTS SOB UPON EXERTION, 1 L O2, TITRATING DOWN. PT DENIES NAUSEA AND VOMITING. PT SLEPT MUCH OF THE NIGHT. NO ACUTE CHANGES OR COMPLICATIONS THIS SHIFT.
--- NOTE | 2018-05-06 15:35 | NUR ---
SUMMARY PT HAS BEEN A/O X4 T/O DAY. SHE APPEARS SOMEWHAT WEAK/FATIGUED HOWEVER STATES FEELING SOMEWHAT BETTER/IMPROVED. SHE HAS BEEN UP TO CHAIR FOR MEALS TODAY, 1 ASSIST W FWW TO BR. TITRATED OFF O2 THIS AFTERNOON, BIOX 91% RA, SHE STATE NO SOB @ REST. DR FAULKNER IN THIS AFTERNOON, ASSESS EVA AREA REDNESS/RASH, STATE IMPROVING, CONTINUE NYSTATIN & AQUAPHOR CREAM FOR NOW. STATE CONDITION STABLE, [employer] TO ASSIST WITH SAFE D/C PLAN TOMORROW. VSS.
--- NOTE | 2018-05-07 04:49 | NUR ---
SHIFT SUMMARY: PT IS ALERT AND ORIENTED. PT IS CALM AND COOPERATIVE WITH CARE. PT CALLS APPROPRIATELY. PT IS A ONE PERSON ASSIST TO THE BATHROOM. PT'S DAUGHTER IN VISITING AT THE START OF SHIFT. PT REPORTS SOB UPON EXERTION. PT DENIES PAIN, NAUSEA, AND VOMITING. AWAITING PLACEMENT. NO ACUTE CHANGES OR COMPLICATIONS THIS SHIFT. BED IN LOW POSITION, CALL LIGHT WITHIN REACH. WILL REPORT TO DAY NURSE.
[2018-05-07 04:57] LABS: BASOPHILS ABSOLUTE AUTO 0.09 K/mm3 (0.00-0.23); BASOPHILS PERCENT AUTO 1 % (0-2); EOSINOPHILS ABSOLUTE AUTO 0.43 K/mm3 (0.00-0.68); EOSINOPHILS PERCENT AUTO 7 % (0-6); Hematocrit 30.5 % (33.0-51.0); Hemoglobin 9.2 g/dL (11.5-16.0); IMMATURE GRAN ABSOLUTE AUTO 0.04 K/mm3 (0.00-0.10); IMMATURE GRAN PERCENT AUTO 1 % (0-1); LYMPHOCYTES PERCENT AUTO 20 % (21-46); MONOCYTES ABSOLUTE AUTO 0.85 K/mm3 (0.16-1.47); MONOCYTES PERCENT AUTO 13 % (4-13); Mean Corpuscular HGB 32.4 pg (26.0-34.0); Mean Corpuscular HGB Conc 30.2 g/dL (31.5-36.5); Mean Corpuscular Volume 107 fL (80-100); Mean Platelet Volume 9.9 fL (9.1-12.4); NEUTROPHILS PERCENT AUTO 59 % (41-73); Platelet Count 478 K/mm3 (150-400); RDW Coefficient Variation 19.8 % (11.7-14.2); RDW Standard Deviation 76.8 fL (35.1-46.3); Red Blood Cell Count 2.84 M/mm3 (3.80-5.20); White Blood Cell Count 6.61 K/mm3 (4.00-11.30)
[2018-05-07 05:23] LABS: Alanine Aminotransfer (ALT/SGP 20 U/L (12-78); Albumin, Blood 2.4 g/dL (3.4-5.0); Albumin/Globulin Ratio 0.6 (0.8-1.8); Alk Phos 78 U/L (50-136); Anion Gap 7 mmol/L (6-16); Aspartate Aminotrans (AST/SGOT 27 U/L (12-37); Bilirubin, Total 0.4 mg/dL (0.1-1.0); Blood Urea Nitrogen 8 mg/dL (8-24); Bun/Creatinine Ratio 17.6 (12.0-20.0); CO2, Blood 28 mmol/L (21-32); Calcium, Blood 8.3 mg/dL (8.5-10.1); Chloride, Blood 106 mmol/L (98-108); Creatinine, Blood 0.45 mg/dL (0.40-1.00); Globulin, Blood 3.7 g/dL (2.2-4.0); Glomerular Filtration Rate >60 (60-); Glucose, Blood 119 mg/dL (70-99); Magnesium, Blood 2.1 mg/dL (1.6-2.4); Sodium, Blood 141 mmol/L (136-145); Total Protein, Blood 6.1 g/dL (6.4-8.2)
--- NOTE | 2018-05-07 15:42 | NUR ---
NOTIFIED DR. CAMPBELL PT C/O COUGH. DR. CAMPBELL SAID TO ORDER 1200 MG PO MUCINEX BID. NO OTHER NEW ORDERS AT THIS TIME.
--- NOTE | 2018-05-07 16:07 | NUR ---
NOTIFIED DR. CAMPBELL MUCINEX TABS NOT CRUSHABLE. DR. CAMPBELL SAID TO SWITCH TO LIQUID MUCINEX 600MG BID. NO OTHER NEW ORDERS AT THIS TIME.
--- NOTE | 2018-05-07 16:19 | NUR ---
SHIFT SUMMARY- PT DENIES PAIN. DENIES N/V. REPORTS SOB. PT 80% ON RA THIS AM. PLACED PT ON 2L O2 NC. 93% ON 2L O2 NC. RESP LABORED. DYSPNEA UPON MILD EXERTION. PT REPORTS COUGH THIS PM. MEDS GIVEN PER EMAR. 1 ASSIST WITH FWW TO THE BATHROOM. NO OTHER SIGNIFICANT CHANGES THIS SHIFT.
--- NOTE | 2018-05-08 04:33 | NUR ---
05/08/18 0430 AWAKENED FOR VITALS,LABWORK AND MEDS. SLEPT POORLY DUE TO FREQUENT COUGH AND C/O THIRST. TAKING FLUIDS SLOWLY PER TOLERANCE. VITALS STABLE. FATIGUE APPEARANCE. VERY WEAK ALL SHIFT.
[2018-05-08 06:04] LABS: Anion Gap 7 mmol/L (6-16); Blood Urea Nitrogen 9 mg/dL (8-24); Bun/Creatinine Ratio 18.2 (12.0-20.0); CO2, Blood 29 mmol/L (21-32); Calcium, Blood 8.5 mg/dL (8.5-10.1); Chloride, Blood 104 mmol/L (98-108); Glomerular Filtration Rate >60 (60-); Glucose, Blood 112 mg/dL (70-99); Potassium, Blood 3.9 mmol/L (3.5-5.5); Sodium, Blood 140 mmol/L (136-145)
--- NOTE | 2018-05-08 07:41 | NUR ---
PERMISSION FOR CARE Patient gave permission for student to provide care on 05/08/18.
--- NOTE | 2018-05-08 07:43 | NUR ---
SPOKE WITH DR. CAMPBELL ABOUT PT'S TEMP AND RR. NEW ORDERS RECEIVED.
[2018-05-08 08:25] LABS: BASOPHILS PERCENT AUTO 1 % (0-2); EOSINOPHILS ABSOLUTE AUTO 0.33 K/mm3 (0.00-0.68); EOSINOPHILS PERCENT AUTO 5 % (0-6); Hematocrit 32.5 % (33.0-51.0); Hemoglobin 9.6 g/dL (11.5-16.0); IMMATURE GRAN ABSOLUTE AUTO 0.05 K/mm3 (0.00-0.10); IMMATURE GRAN PERCENT AUTO 1 % (0-1); LYMPHOCYTES PERCENT AUTO 11 % (21-46); MONOCYTES PERCENT AUTO 13 % (4-13); Mean Corpuscular HGB 32.1 pg (26.0-34.0); Mean Corpuscular HGB Conc 29.5 g/dL (31.5-36.5); Mean Corpuscular Volume 109 fL (80-100); Mean Platelet Volume 10.1 fL (9.1-12.4); NEUTROPHILS ABSOLUTE AUTO 4.86 K/mm3 (1.96-9.15); NEUTROPHILS PERCENT AUTO 69 % (41-73); NRBC ABSOLUTE 0.02 K/mm3 (0.00-0.02); NRBC Auto 0.3 /100 WBC (0.0-0.2); Platelet Count 513 K/mm3 (150-400); RDW Coefficient Variation 19.9 % (11.7-14.2); Red Blood Cell Count 2.99 M/mm3 (3.80-5.20); White Blood Cell Count 7.04 K/mm3 (4.00-11.30)
--- NOTE | 2018-05-08 15:14 | NUR ---
TRANSFER TO PCU REPORT GIVEN TO CLAUDIA JONES
--- NOTE | 2018-05-08 15:48 | NUR ---
PT TRANSFERED TO PCU VIA W/C WITH 02 PER NC; TRANSFER OF CARE AND REPORT GIVEN TO CLAUDIA JONES. ALL PT BELONGINGS AND MEDICATIONS SENT AT TIME OF TRANSFER.
--- NOTE | 2018-05-08 16:02 | NUR ---
PT ARRIVED TO PCU 13 FROM 302 WITH CONCERNS OF HIGHER HEART RATE, RESP RATE, AND TEMP. PT IS ALERT, STATES MILD HEAD ACHE, NO PAIN OTHERWISE. HAS "PEEP" RESPIRATIONS OF 28. PT STATES THIS IS A NORMAL PATTERN FOR HER. VSS. TEMP NOW AT 99.6. CONT TO MONITOR
--- NOTE | 2018-05-08 19:52 | NUR ---
PT RESTING IN BED. PT'S NEIGHBOR HAD BEEN IN TO VISIT MOST OF THE LATE AFTERNOON/JENNIFER. STATES PT USUALLY VERY SOCIAL AND LIVELY, TODAYS PRESENTATION NOT BEING HER NORM. PT DISPLAYING SIGNS OF FEVER STATRING BACK, PT STATES BEING COLD, SHIVERING, MORE FREQ RESPIRATIONS. TEMP STILL AT 99.8 AT DINNERTIME. REPORT GIVEN TO HEVER TAYLOR. PT HAS HAD A LIFE-LONG FEAR OF TAKING PILLS, MEDICATIONS MUST BE IV, LIQUID, OR CRUSHED AND IN PUDDING OR FRUIT SAUCE. NEIGHBOR ALSO STATES THAT PT DOES NOT EAT WELL, HAS BROKEN TEETH. WHEN GIVING CRUSHED MED IN PEACH SAUCE, PT WAS ONLY TAKING TINY BITES AND NEEDED LOTS OF ENC.
[2018-05-08 20:05] LABS: C DIFFICILE BY DNA AMP Positive (Negative)
[2018-05-09 04:18] LABS: BASOPHILS ABSOLUTE AUTO 0.05 K/mm3 (0.00-0.23); BASOPHILS PERCENT AUTO 1 % (0-2); EOSINOPHILS ABSOLUTE AUTO 0.02 K/mm3 (0.00-0.68); EOSINOPHILS PERCENT AUTO 0 % (0-6); Hematocrit 31.7 % (33.0-51.0); Hemoglobin 9.7 g/dL (11.5-16.0); IMMATURE GRAN ABSOLUTE AUTO 0.05 K/mm3 (0.00-0.10); IMMATURE GRAN PERCENT AUTO 1 % (0-1); LYMPHOCYTES PERCENT AUTO 13 % (21-46); MONOCYTES ABSOLUTE AUTO 0.87 K/mm3 (0.16-1.47); MONOCYTES PERCENT AUTO 16 % (4-13); Mean Corpuscular HGB Conc 30.6 g/dL (31.5-36.5); Mean Corpuscular Volume 108 fL (80-100); Mean Platelet Volume 9.5 fL (9.1-12.4); NEUTROPHILS ABSOLUTE AUTO 3.82 K/mm3 (1.96-9.15); NEUTROPHILS PERCENT AUTO 69 % (41-73); Platelet Count 398 K/mm3 (150-400); RDW Coefficient Variation 19.8 % (11.7-14.2); RDW Standard Deviation 76.9 fL (35.1-46.3); Red Blood Cell Count 2.94 M/mm3 (3.80-5.20); White Blood Cell Count 5.51 K/mm3 (4.00-11.30)
[2018-05-09 04:33] LABS: Anion Gap 6 mmol/L (6-16); Blood Urea Nitrogen 10 mg/dL (8-24); Bun/Creatinine Ratio 14.4 (12.0-20.0); CO2, Blood 30 mmol/L (21-32); Calcium, Blood 8.1 mg/dL (8.5-10.1); Chloride, Blood 105 mmol/L (98-108); Glomerular Filtration Rate >60 (60-); Glucose, Blood 114 mg/dL (70-99); Potassium, Blood 3.5 mmol/L (3.5-5.5); Sodium, Blood 141 mmol/L (136-145)
--- NOTE | 2018-05-09 04:41 | NUR ---
SHIFT SUMMARY PT A&O X4. CALM AND COOPERATIVE. PT FEBRILE AT START OF SHIFT SUCCESSFULLY TX'D W/ PRN TYLENOL, TEMP NOW WNL. PT LUNG SOUNDS DIM T/O. SPO2 > 90% ON 2L NC. RR 20-40. OCCASSIONAL NONPRODUCTIVE COUGH. RED AREA IN SKIN FOLDS OF GROIN AND EVA AREA. NYSTATIN BEING USED PER ORDERS. PT HAVING BROWN/YELLOW LOOSE STOOLS. PT SBA TO BSC, CONTINENT AND INCONTINENT OF URINE AND BOWEL. PT WEARING ATTENDS. Q2H REPOSITIONING WHILE IN BED. WILL CONTINUE TO MONITOR AND PROVIDE CARE UNTIL REPORT OFF TO DAY SHIFT RN.
--- NOTE | 2018-05-09 08:00 | NUR ---
pt laying in bed with eyes closed, wakes easily. states she is doing ok, just hard to breath. pt is very slow to respond or move, asks for things, then falls asleep and forgets she got it. she is cooperative with care, follows some commands, lungs are course t/o, resp even and unlabored, nonproductive cough noted, hrr, tele in place running sr/st per monitor, see strip, no edema noted, ppp+1, cap refill <3sec, vs stable, afebrile, iv site is clear and patent, s.l. btx4, abd flat soft nontender, voids without diff, skin c/w/d, maluly, sony, call light in reach. Dr. Parker in to see her this am, changed her status to medical without tele. call light in reach.
--- NOTE | 2018-05-09 13:30 | NUR ---
pt sleeps most of the time when left undisturbed. no complaints. seems depressed. call light in reach.
--- NOTE | 2018-05-09 16:33 | NUR ---
pt has been transfered to medical floor, report given to Julia TAYLOR. pt left via wheelchair with paint spray inspector in attendence with all her belongings.
--- NOTE | 2018-05-09 18:19 | NUR ---
PT ARRIVED TO ROOM 333 FROM PCU AFTER RN TO RN REPORT COMPLETED. SETTLED IN TO BED AND FELL ASLEEP. NAPPED TIL DINNER. AWAKENS TO NAME AND RESPONDS APPRORPIATELY TO QUESTIONS. APPEARS WEAK AND DECONDITIONED WITH TRANSFER AND BED MOBILITY.
[2018-05-10 06:04] LABS: Anion Gap 8 mmol/L (6-16); Blood Urea Nitrogen 13 mg/dL (8-24); Bun/Creatinine Ratio 20.5 (12.0-20.0); CO2, Blood 31 mmol/L (21-32); Calcium, Blood 8.4 mg/dL (8.5-10.1); Chloride, Blood 103 mmol/L (98-108); Creatinine, Blood 0.63 mg/dL (0.40-1.00); Glomerular Filtration Rate >60 (60-); Glucose, Blood 93 mg/dL (70-99); Potassium, Blood 3.2 mmol/L (3.5-5.5); Sodium, Blood 142 mmol/L (136-145)
--- NOTE | 2018-05-10 06:45 | NUR ---
SHIFT SUMMARY PT IS A 63 Y/O FEMALE, ADMITTED FOR A UTI. SHE IS A&O X 2-3. THE PT REPORTED A HEADACHE AND MILD PAIN IN HER ABD FROM HER COUGH, FOR WHICH SHE WAS MEDICATED X 2 WITH PRN TYLENOL. SHE ALSO REPORTED SOB, FOR WHICH SHE WAS TREATED WITH PRN BREATHING TREATMENTS. SHE IS ON 4L OF O2 VIA OXIMIZER, AND SATTING IN THE LOW 90S. ALL OTHER VITALS STABLE. NO OTHER ACUTE CHANGES IN PT CONDITION NOTED. WILL CONTINUE TO MONITOR AND TREAT PER EMAR.
[2018-05-10 15:18] LABS: Adenovirus Not Detected (NOT DETECT); Coronavirus 229E Not Detected (NOT DETECT); Coronavirus HKU1 Not Detected (NOT DETECT); Coronavirus NL63 Not Detected (NOT DETECT); Coronavirus OC43 Not Detected (NOT DETECT); Human Metapneumovirus Not Detected (NOT DETECT); Human Rhinovirus/Enterovirus Not Detected (NOT DETECT); Influenza A Detected (NOT DETECT); Influenza A/H1 Not Detected (NOT DETECT)
[2018-05-10 15:19] LABS: Bordetella pertussis Not Detected (NOT DETECT); Chlamydophila pneumoniae Not Detected (NOT DETECT); Influenza A/2009-H1 Not Detected (NOT DETECT); Influenza A/H3 Detected (NOT DETECT); Influenza B Not Detected (NOT DETECT); Mycoplasma pneumoniae Not Detected (NOT DETECT); Parainfluenza Virus 1 Not Detected (NOT DETECT); Parainfluenza Virus 2 Not Detected (NOT DETECT); Parainfluenza Virus 3 Not Detected (NOT DETECT); Parainfluenza Virus 4 Not Detected (NOT DETECT); Respiratory Syncytial Virus Not Detected (NOT DETECT)
--- NOTE | 2018-05-10 17:47 | NUR ---
SHIFT SUMMARY SLEEPING THIS MORNING AT BREAKFAST AND DIDN'T ROUSE TIL LATE MORNING. REPOSITIONED IN BED AND OXIMIZER REMOVED AND NC REPLACED FOR COMFORT. HAD NO RESP DISTRESS THROUGH DAY OTHER THAN COUGH THAT WOULD CAUSE PAIN TO ABDOMEN. INSTRUCTED ON SPLINTING WITH A PILLOW. STOOL LIQUID WITH STRONG BILE. CREAM APPLIED TO BUTTOCKS/RECTUM FOR COMFORT FROM IRRITATION. VERY AWAKE AND ALERT WHEN SHE WAS NOT NAPPING. 1 PERSON ASSIST WITH TRANSFERS AND AMBULATING USING FWW. SHOWER TAKEN THIS A.M.
--- NOTE | 2018-05-11 06:47 | NUR ---
SHIFT SUMMARY PT IS A 63 Y/O FEMALE, ADMITTED FOR A UTI AND FOUND POSITIVE FOR THE FLU. SHE REPORTED SOME MILD SHORTNESS OF BREATH AND ABD PAIN RELATED TO HER COUGH, WHICH SHE WAS TREATED FOR WITH PRN TYLENOL AND SCHEDULED COUGH MEDICINE. SHE DENIED ANY NAUSEA. PT'S BP WAS LOW DURING AM VITALS, AND SHE HAD A PERIOD OF RAPID RESPIRATIONS AT 32 THAT DROPPED BACK TO THE 20S ON RECHECK. ALL OTHER VITALS STABLE. NO OTHER ACUTE CHANGES IN PT CONDITION NOTED. WILL CONTINUE TO MONITOR AND TREAT PER EMAR.
--- NOTE | 2018-05-11 17:44 | NUR ---
SHIFT SUMMARY PATIENT PLEASANT. HAS TROUBLE SWALLOWING PILLS AND ALL MEDS HAVE TO BE CRUSHED. PATIENT HAS MOST MEDICATIONS IN LIQUID FORM. PATIENT WORKED WITH PHYSICAL THERAPY TODAY AND DID VERY WELL. STILL VERY WEAK, NEEDS CONTINUED WORK. NO ACUTE CONCERNS FROM THE PATIENT AT THIS TIME.
--- NOTE | 2018-05-12 07:13 | NUR ---
alert to self, call light in reach, saline locked, 4L via nc, walking rounds completed with returning day staff
[2018-05-12 10:56] LABS: Hemoglobin 10.2 g/dL (11.5-16.0); Mean Corpuscular HGB 31.2 pg (26.0-34.0); Mean Platelet Volume 9.6 fL (9.1-12.4); Platelet Count 385 K/mm3 (150-400); RDW Coefficient Variation 18.9 % (11.7-14.2); RDW Standard Deviation 70.9 fL (35.1-46.3); Red Blood Cell Count 3.27 M/mm3 (3.80-5.20); White Blood Cell Count 4.21 K/mm3 (4.00-11.30)
[2018-05-12 10:57] LABS: Mean Corpuscular Volume 104 fL (80-100)
[2018-05-12 11:10] LABS: Anion Gap 4 mmol/L (6-16); Blood Urea Nitrogen 8 mg/dL (8-24); Bun/Creatinine Ratio 15.9 (12.0-20.0); CO2, Blood 36 mmol/L (21-32); Calcium, Blood 8.5 mg/dL (8.5-10.1); Chloride, Blood 102 mmol/L (98-108); Glomerular Filtration Rate >60 (60-); Glucose, Blood 101 mg/dL (70-99); Potassium, Blood 3.1 mmol/L (3.5-5.5); Sodium, Blood 142 mmol/L (136-145)
[2018-05-12 11:18] LABS: BASOPHILS PERCENT MAN 0 % (0-2); EOSINOPHILS PERCENT MAN 0 % (0-6); LYMPHOCYTES ABSOLUTE MAN 1.76 K/mm3 (0.84-5.20); LYMPHOCYTES PERCENT MAN 42 % (21-46); MONOCYTES ABSOLUTE MAN 0.33 K/mm3 (0.16-1.47); MONOCYTES PERCENT MAN 8 % (4-13); SEG NEUTROPHILS PERCENT MAN 50 % (41-73); TOTAL CELLS COUNTED 100
--- NOTE | 2018-05-12 11:29 | NUR ---
CALLED HOSPITALIST SEEKING CLARIFICATION ON THE APPLICATION OF NYSTATIN CREAM, AQUAFOR, AND NYSTATIN POWDER. PT WAS ADMITTED WITH A SEVERELY INFLAMED RASH IN THE GROIN/EVA AREA THAT HAS SINCE ALMOST RESOLVED. UPON INVESTIGATION I FOUND THAT PT HAS BEEN REQUESTING PREVIOUS NURSING STAFF APPLY THESE MEDICATIONS TO HER NARES. DUE TO HX OF ALCOHOL INDUCED DEMENTIA, I CALLED HOSPITALIST FOR CLARIFICATION. HOSPITALIST DC'D NYSTATIN CREAM AND AQUAFOR IT IS NO LONGER INDICATED.
[2018-05-12 14:38] LABS: Adenovirus F 40/41 Not Detected (NOT DETECT); Astrovirus Not Detected (NOT DETECT); Campylobacter Sp Not Detected (NOT DETECT); Cryptosporidium Not Detected (NOT DETECT); Cyclospora Cayetanensis Not Detected (NOT DETECT); E. Coli O157 Not Detected (NOT DETECT); Entamoeba Histolytica Not Detected (NOT DETECT); Enteroaggregative E. coli-EAEC Not Detected (NOT DETECT); Enteropathogenic E. coli-EPEC Not Detected (NOT DETECT); Enterotoxigenic E. coli-ETEC Not Detected (NOT DETECT); Giardia Lamblia Not Detected (NOT DETECT); Norovirus GI/GII Not Detected (NOT DETECT); Plesiomonas Shigelloides Not Detected (NOT DETECT); Rotavirus A Not Detected (NOT DETECT); Salmonella Sp Not Detected (NOT DETECT); Sapovirus Not Detected (NOT DETECT); Shiga Toxin-prod E. coli-STEC Not Detected (NOT DETECT); Shigella/Enteroin E. coli-EIEC Not Detected (NOT DETECT); Vibrio Cholerae Not Detected (NOT DETECT); Vibrio Sp Not Detected (NOT DETECT); Yersinia Enterocolitica Not Detected (NOT DETECT)
--- NOTE | 2018-05-12 18:16 | NUR ---
SHIFT SUMMARY 63 YR OLD FEMALE. FULL CODE. CONTACT/DROPLET PRECAUTIONS FOR INFLUENZA A AND CDIFF. ADMITTED FOR UTI. ALL MEDS CRUSHED IN APPLESAUCE. ACHS, LOW SS. GI PANEL REQUESTED SPECIMEN COLLECTED TODAY. 22 LFT FOREARM, SALINE LOCKED. ADA DIET. HX OF ALCOHOL RELATED DEMENTIA, ANXIETY, DEPRESSION, FATTY LIVER. RASH TO GROIN IMPROVING WITH NYSTATIN POWDER. PLAN IS TO DC TO SNF IN [place].
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
--- NOTE | 2018-05-13 04:35 | NUR ---
NOC SHIFT SUMMARY PT HAS BEEN PLEASANT AND COOPERATIVE WITH CARE THIS NIGHT. SHE DID DESAT WHEN SHE GOT UP TO GO TO THE BATHROOM. RETURNED TO BED AND ADJUSTED NASAL CANULA SECURELY AND SATS RETURNED TO ABOVE 90 ON 5L WHICH SHE HAS BEEN ON. CURRENTLY APPEARS IN NO ACUTE DISTRESS AND VOICES NOT NEEDS. WILL CONTINUE TO MONITOR.
[2018-05-13 04:50] LABS: BASOPHILS ABSOLUTE AUTO 0.05 K/mm3 (0.00-0.23); BASOPHILS PERCENT AUTO 1 % (0-2); EOSINOPHILS ABSOLUTE AUTO 0.23 K/mm3 (0.00-0.68); EOSINOPHILS PERCENT AUTO 5 % (0-6); Hematocrit 35.2 % (33.0-51.0); Hemoglobin 10.5 g/dL (11.5-16.0); Mean Corpuscular HGB 31.5 pg (26.0-34.0); Mean Corpuscular HGB Conc 29.8 g/dL (31.5-36.5); Mean Corpuscular Volume 106 fL (80-100); Mean Platelet Volume 9.3 fL (9.1-12.4); Platelet Count 335 K/mm3 (150-400); RDW Coefficient Variation 18.8 % (11.7-14.2); RDW Standard Deviation 72.5 fL (35.1-46.3); Red Blood Cell Count 3.33 M/mm3 (3.80-5.20); White Blood Cell Count 4.84 K/mm3 (4.00-11.30)
[2018-05-13 04:54] LABS: IMMATURE GRAN ABSOLUTE AUTO 0.03 K/mm3 (0.00-0.10); IMMATURE GRAN PERCENT AUTO 1 % (0-1); LYMPHOCYTES ABSOLUTE AUTO 2.05 K/mm3 (0.84-5.20); LYMPHOCYTES PERCENT AUTO 42 % (21-46); MONOCYTES ABSOLUTE AUTO 0.47 K/mm3 (0.16-1.47); MONOCYTES PERCENT AUTO 10 % (4-13); NEUTROPHILS ABSOLUTE AUTO 2.01 K/mm3 (1.96-9.15); NEUTROPHILS PERCENT AUTO 42 % (41-73)
[2018-05-13 05:06] LABS: Anion Gap 6 mmol/L (6-16); Blood Urea Nitrogen 7 mg/dL (8-24); Bun/Creatinine Ratio 14.6 (12.0-20.0); CO2, Blood 34 mmol/L (21-32); Calcium, Blood 8.4 mg/dL (8.5-10.1); Chloride, Blood 101 mmol/L (98-108); Creatinine, Blood 0.48 mg/dL (0.40-1.00); Glomerular Filtration Rate >60 (60-); Glucose, Blood 112 mg/dL (70-99); Potassium, Blood 2.9 mmol/L (3.5-5.5); Sodium, Blood 141 mmol/L (136-145)
--- NOTE | 2018-05-13 15:52 | NUR ---
O2 DESAT TRIAL - RESULT #1 45 MINUTES AT 3 1/2 LPM O2, PT'S O2 SAT MEASURED AT 96%. SLEEPING IN BED. HOB ELEVATED. NO PHYSICAL ACTIVITY. TITRATING DOWN TO 2 1/2 - WILL POST RESULTS OF TRIAL 2
--- NOTE | 2018-05-13 16:18 | NUR ---
O2 DESAT TRIAL RESULTS #2 PT DESATTED TO 85% ON 2.5 LPM WITH ACTIVITY. SHE WAS UP FOR SHOWER AND BSC. TITRATED O2 ADMIN BACK UP TO 3.5 LPM - O2 SAT RETURNED TO 91%. PT SITTING IN CHAIR BESIDE BED.
--- NOTE | 2018-05-13 19:19 | NUR ---
SHIFT SUMMARY 63 YR OLD FEMALE ADMITTED FOR UTI. FULL CODE. FAILURE TO THRIVE. HOSPITALIST REQUESTED I DO AN O2 DESAT TRIAL TO TRY TO TITRATE DOWN ON O2 USE. I WAS ABLE TO GET DOWN TO 3.5 LPM AND KEEP SATURATION ABOVE 90. I PASSED THIS ON TO NIGHT NURSE SO THAT THEY COULD TRY. ALL MEDS ARE CRUSHED TO FINE POWDER AND MIXED WITH APPLESAUCE. PT'S MOOD IMPROVED GREATLY WHEN HER VISITED TODAY. SHE WAS MORE RESPONSIVE, LESS SLEEPY. I ASKED HER DAUGHTER CHILO WHERE THEY WERE AT IN MAKING ARRANGEMENTS FOR SNF PLACEMENT, SHE INFORMED ME THAT SHE MUST PROCURE INSURANCE COVERAGE FOR HER MOM FIRST. PLAN WAS FOR PT TO DC TO A SNF IN [place], ALTHOUGH THAT MAY CHANGE. HX:ALCOHOL RELATED DEMENTIA, ANXIETY, DEPRESSION, FATTY LIVER. PT IN DROPLET/CONTACT FOR FLU A AND CDIFF
--- NOTE | 2018-05-14 06:17 | NUR ---
NOC SHIFT SUMMARY PT HAS BEEN PLEASANT AND COOPERATIVE WITH CARE THIS NIGHT. ATTEMPTED TO WEAN PT DOWN ON O2 BUT WAS UNSUCCESSFUL. HAD TO INCREASE O2 IN ORDER TO MAINTAIN SATS AT 90. PT NOW ON 5LNC. DESATS WITH ANY ACTIVITY. HOB RAISED TO 45 DEGREES IN BED AT REST. NO OTHER CHANGES NOTED THIS NIGHT. PT APPEARS IN NO ACUTE DISTRESS. WILL CONTINUE TO MONITOR.
--- NOTE | 2018-05-14 19:00 | NUR ---
SHIFT SUMMARY: NO ACUTE CHANGES NOTED THIS SHIFT. SHE REAMIANS ON 5L O2 TO MAINTAIN SATS >90%. ORAL INTAKE WAS VERY MINIMAL. SHE STS "I'M NOT HUNGRY". ATTENDS IN PLACE FOR OCCATIONAL INCONT.
[2018-05-15 04:43] LABS: BASOPHILS ABSOLUTE AUTO 0.07 K/mm3 (0.00-0.23); BASOPHILS PERCENT AUTO 1 % (0-2); EOSINOPHILS PERCENT AUTO 5 % (0-6); Hematocrit 38.1 % (33.0-51.0); Hemoglobin 11.2 g/dL (11.5-16.0); IMMATURE GRAN ABSOLUTE AUTO 0.05 K/mm3 (0.00-0.10); IMMATURE GRAN PERCENT AUTO 1 % (0-1); LYMPHOCYTES ABSOLUTE AUTO 2.28 K/mm3 (0.84-5.20); LYMPHOCYTES PERCENT AUTO 31 % (21-46); MONOCYTES ABSOLUTE AUTO 0.87 K/mm3 (0.16-1.47); MONOCYTES PERCENT AUTO 12 % (4-13); Mean Corpuscular HGB 31.6 pg (26.0-34.0); Mean Corpuscular HGB Conc 29.4 g/dL (31.5-36.5); Mean Corpuscular Volume 108 fL (80-100); Mean Platelet Volume 9.9 fL (9.1-12.4); NEUTROPHILS ABSOLUTE AUTO 3.69 K/mm3 (1.96-9.15); NEUTROPHILS PERCENT AUTO 50 % (41-73); Platelet Count 359 K/mm3 (150-400); RDW Coefficient Variation 18.9 % (11.7-14.2); RDW Standard Deviation 73.5 fL (35.1-46.3); Red Blood Cell Count 3.54 M/mm3 (3.80-5.20); White Blood Cell Count 7.36 K/mm3 (4.00-11.30)
[2018-05-15 05:03] LABS: Anion Gap 4 mmol/L (6-16); Blood Urea Nitrogen 7 mg/dL (8-24); Bun/Creatinine Ratio 12.9 (12.0-20.0); CO2, Blood 35 mmol/L (21-32); Calcium, Blood 8.5 mg/dL (8.5-10.1); Chloride, Blood 101 mmol/L (98-108); Creatinine, Blood 0.54 mg/dL (0.40-1.00); Glomerular Filtration Rate >60 (60-); Glucose, Blood 100 mg/dL (70-99); Sodium, Blood 140 mmol/L (136-145)
--- NOTE | 2018-05-15 05:14 | NUR ---
SHIFT SUMMARY: NO ACUTE CHANGES TONIGHT. PT IS A&O, SLOW TO RESPOND. PT SBA TO BSC. ADMINISTERED MEDS PER EMAR. THIN LIQUIDS DIET JAW IS WIRED. PT TREATED 1X FOR HEADACHE c PO TYLENOL. PROVIDES RELIEF. PT UNABLE TO WEEN DOWN O2, STILL AT 5L VIA NC O2 SATS DROP BELOW 90% UPON WEEN TRIAL. NO OTHER CHANGES TO REPORT. WILL CONT TO MONITOR AND PROVIDE CARE UNTIL PRESUMED BY ONCOMING RN.
--- NOTE | 2018-05-15 19:25 | NUR ---
PER DAY RN, INCORRECT ORDERS FOR COMFORT CARE WERE PUT IN ON THIS PATIENT, EVERYTHING WAS CORRECTED EXCEPT CODE STATUS, THIS IS NOW ALSO CORRECTED BACK TO THEIR ORIGINAL CODE STATUS.
[2018-05-16 05:54] LABS: Anion Gap 9 mmol/L (6-16); Blood Urea Nitrogen 8 mg/dL (8-24); Bun/Creatinine Ratio 14.1 (12.0-20.0); CO2, Blood 33 mmol/L (21-32); Calcium, Blood 8.7 mg/dL (8.5-10.1); Chloride, Blood 98 mmol/L (98-108); Creatinine, Blood 0.57 mg/dL (0.40-1.00); Glomerular Filtration Rate >60 (60-); Glucose, Blood 102 mg/dL (70-99); Sodium, Blood 140 mmol/L (136-145)
--- NOTE | 2018-05-16 07:37 | NUR ---
SHIFT SUMMARY PT ALERT T/O SHIFT. 6-7L O2 VIA HIGH-FLOW NC. LS TIGHT BILAT; RESP. TX PER RT, PT STS IMPROVEMENT AFTER TX. PT REPORTS INCREASED SOB WITH ACTIVITY; O2 SATS MAINTAINED WHEN CHECKED DURING ACTIVITY. SBA TO BSC WITH FWW. FEW VERY SMALL SOFT STOOLS. SCD'S TO BLE'S FOR PART OF SHIFT; PT REQUESTED REMOVAL. PT DENIES ABD PAIN AND CP. BLOOD GLUCOSE MANAGED PER EMAR. MEDS PER PRECAUTIONS. REDNESS TO EVA-AREA TX PER EMAR. CALL LIGHT IN REACH. BED ALARM AND SIDE RAILS X3. REPORT GIVEN TO DAY SHIFT RN.
--- NOTE | 2018-05-16 16:41 | NUR ---
SHIFT SUMMARY- PT A/O TO PERSON AND PLACE. PT MEDICATED X1 WITH TYLENOL. INDEP UP TO BSC AND SBA WITH FWW INTO BATHROOM. LS DIMINISHED, NOW ON 6L HIGH FLOW 02, SOB WITH EXCERTION. PT NOTED TO HAVE CRANBERRY COLORED URINE. YEAST TO FOLDS IMPROVING WITH NYSTATIN. NO STOOLS NOTED THIS SHIFT, ORAL VANCO STOPPED. ORAL POTASSIUM GIVEN FOR POTASSIUM OF 3.0. DAUGHTER CALLED AND REPORTED CONCERNS WITH PT BEING ON HIGH FLOW 02, SHE IS ALSO ASKING FOR ASSISTANCE WITH GETTING PT INSURANCE AND A PCP, MESSAGE LEFT WITH CARE MANAGEMENT. NO OTHER ACUTE CHANGES THIS SHIFT.
--- NOTE | 2018-05-16 17:05 | NUR ---
PT UP TO BSC WITH SMALL SOFT UNFORMED STOOL, URINE CRISTIAN COLOR AT THIS TIME.
--- NOTE | 2018-05-16 18:27 | NUR ---
PT NOTED TO HAVE MULTIPLE RED WELTS ON BACK AND SHOULERS THE SIZE OF THE NICOTINE PATCHES. PATCH REMOVED AT THIS TIME.
--- NOTE | 2018-05-17 05:47 | NUR ---
SHIFT SUMMARY PT HAD UNEVENTFUL SHIFT. PT RESTED WELL T/O SHIFT. PT O2 FLOW WAS REDUCED TO 5 LPM BY RT. PT HAD NO ACUTE ISSUES NOTED AND HAD NO COMPLAINTS. PT DAUGHTER NIDA CALLED FOR A UPDATE. DAUGHTER WANTED TO KNOW WHY PT HAD NOT RECIEVED SOME TESTS THAT SHE FELT WERE IMPORTANT. DAUGHTER WANTS PROVIDER TO CALL HER 05/17/2018. HER NUMBER IS ON WHITE BOARD IN PT'S ROOM. DAUGHTERS CONCERNS ARE : WHY NO ABG BEEN DONE, WHY NO INR OR D-DIMER, WHY PT O2 NEED IS INCREASING. PT CURRENTLY SLEEPING AND BREATHING EASY. PT CALL LIGHT IN REACH.
--- NOTE | 2018-05-17 17:07 | NUR ---
SHIFT SUMMARY NO ACUTE CHANGES THIS SHIFT. PT UP TO BSC FOR VOIDING. SLIGHT SHORTNESS OF BREATH WITH EXERTION TO BSC/CHAIR. PT'S OXYGEN SATURATION 90-94% ON 3L VIA NC. LUNG SOUNDS DIMINISHED. NO DISTRESS AT THIS TIME. CALL LIGHT IN REACH. WILL CONTINUE TO MONITOR AND REPORT TO ONCOMING RN.
--- NOTE | 2018-05-18 05:42 | NUR ---
CENA SUMMARY NO ACUTE CHANGES THIS SHIFT. PT AAOX3 AND PLEASANT. CALLS APPROPRIATELY FOR ASSISTANCE. STANDBY ASSIST TO BSC. PT DENIES PAIN, SOB, N/V. PT O2 SATS STABLE IN MID 90'S, TITRATED O2 DOWN TO 2L FROM 3L. VSS, WILL CONTINUE TO MONITOR.
[2018-05-18 06:12] LABS: Anion Gap 8 mmol/L (6-16); Blood Urea Nitrogen 6 mg/dL (8-24); Bun/Creatinine Ratio 11.2 (12.0-20.0); CO2, Blood 32 mmol/L (21-32); Calcium, Blood 8.6 mg/dL (8.5-10.1); Chloride, Blood 100 mmol/L (98-108); Creatinine, Blood 0.54 mg/dL (0.40-1.00); Glomerular Filtration Rate >60 (60-); Glucose, Blood 105 mg/dL (70-99); Potassium, Blood 3.1 mmol/L (3.5-5.5); Sodium, Blood 140 mmol/L (136-145)
--- NOTE | 2018-05-18 17:25 | NUR ---
NO NEW CHANGES ON PATIENT. STILL AWAITING PLACEMENT. PATIENTS COMPLAINED OF MERCEDES, TYLENOL GIVEN PER EMAR. NO OTHER COMPLAINTS THIS SHIFT.
--- NOTE | 2018-05-19 04:53 | NUR ---
*SHIFT SUMMARY* PT IS ALERT AND ORIENTED. DOES HAVE A HISTORY OF DEMENTIA, HOWEVER HAS ANSWERED QUESTIONS APPROPRIATELY. USES CALL LIGHT APPROPRIATELY. PT ON 2L NASAL CANNULA. USES BSC INDEPENDENTLY. IS POSITIVE FOR C-DIFF AND INFLUENZA A. ON DROPLET PRECAUTIONS. PT TAKES MEDS CRUSHED IN PUDDING. BLOOD SUGAR DO NOT INDICATE FOR COVERAGE. PT SLEPT WELL THROUGHOUT THE NIGHT. VITAL SIGNS STABLE. PATIENT AWAITING PLACEMENT FOR DISCHARGE.
--- NOTE | 2018-05-19 16:38 | NUR ---
SHIFT SUMMARY PT HAS HAD NO ACUTE CHANGES THIS SHIFT, MEDICATED 1X FOR HEADACHE, NO OTHER COMPLAINTS OF ANY KIND. PT UP TO CHAIR FOR AN HOUR THIS SHIFT, BEDRESTING AT THIS TIME, WILL CONT TO MONITOR UNTIL REPORT GIVEN TO HEVER TAYLOR.
--- NOTE | 2018-05-20 06:00 | NUR ---
*SHIFT SUMMARY* PATIENT IS ALERT AND ORIENTED. PATIENT INDEPENDENT IN ROOM. TAKES PILLS CRUSHED IN PUDDING. DID HAVE COMPLAINTS OF PAIN IN HER LEFT KNEE AND WAS MEDICATED WITH TYLENOL ORDERED. PATIENT SLEPT OFF AND ON THROUGHOUT THE NIGHT. RASH ON GROIN LOOKS CONSIDERABLY BETTER, JUST SOME REDNESS NOTED. VITAL SIGNS STABLE. AWAITING PLACEMENT FOR DISCHARGE.
--- NOTE | 2018-05-20 15:57 | NUR ---
SHIFT SUMMARY PT HAS HAD NO ACUTE CHANGES THIS SHIFT, NO COMPLAINTS OF ANY KIND, AL BEDRESTING AT THIS TIME, WILL CONT TO MONITOR UNTIL REPORT GIVEN TO HEVER RN.
--- NOTE | 2018-05-21 05:39 | NUR ---
*SHIFT SUMMARY* PATIENT IS ALERT AND ORIENTED. PATIENT USES CALL LIGHT APPROPRIATELY. USES BSC INDEPENDENTLY. ON 3L NASAL CANNULA. VITAL SIGNS STABLE. PT DID HAVE PAIN IN LEFT LEG AND WAS MEDICATED ORDERED. NO OTHER CHANGES NOTED.
--- NOTE | 2018-05-21 18:16 | NUR ---
SHIFT SUMMARY PATIENT HAS HAD NO ACUTE CHANGES. WILL DISCHARGE IN THE AM ON HOME O2. FAMILY AWARE OF THIS. ABLE TO MAKE HER NEEDS KNOWN. 1 PERSON SBA TO BATHROOM.
[2018-05-22 05:58] LABS: Anion Gap 8 mmol/L (6-16); Blood Urea Nitrogen 6 mg/dL (8-24); Bun/Creatinine Ratio 13.7 (12.0-20.0); CO2, Blood 28 mmol/L (21-32); Calcium, Blood 8.8 mg/dL (8.5-10.1); Chloride, Blood 103 mmol/L (98-108); Creatinine, Blood 0.44 mg/dL (0.40-1.00); Glomerular Filtration Rate >60 (60-); Glucose, Blood 122 mg/dL (70-99); Potassium, Blood 3.2 mmol/L (3.5-5.5); Sodium, Blood 139 mmol/L (136-145)
--- NOTE | 2018-05-22 07:22 | NUR ---
SUMMARY: ADMIT FOR UTI, FLU AND C. DIFF ON HOSPITALIST SERVICE. PT APPEARS DECONDITIONED R/T ILLNESS AND LENGTH OF ADMIT. VSS, AFEBRILE, MAINTAINS SPO2 >92% ON 3L 02 VIA NC. PT APPEARS IN GOOD SPIRITS AND REMAINS IND TO BSC. ANTICIPATE DC HOME LATER THIS DAY, PENDING HOME O2 SETUP.
--- NOTE | 2018-05-22 12:59 | NUR ---
PATIENT A&O X4. REFUSED ALL PO MORNING MEDICATIONS. RN MEDICATED X1 FOR PAIN. SOB W/ EXERTION. 02 @ 3L NC. NO ACUTE CHANGES. REPORT GIVEN TO CLAUDIA MENENDEZ.
--- NOTE | 2018-05-22 18:23 | NUR ---
PATIENT AMBULATING IN ROOM INDEPENDENTLY. WORKING WITH RODEO CLOWN TO ENSURE MEDICATIONS AFTER DISCHARGE. DISCHARGE IS PLANNED FOR TOMORROW. TAKES PILLS CRUSHED WITH CHOCOLATE PUDDING.
--- NOTE | 2018-05-23 04:39 | NUR ---
NOC SHIFT SUMMARY PT HAS BEEN PLEASANT AND COOPERATIVE WITH CARE. SHE HAS GOTTEN UP TWICE WITH FWW TO USE RESTROOM. VSS. AAOX4. RESP ARE EVEN AND UNLABORED. SHE READ A BOOK FOR MUCH OF NIGHT THEN WENT TO SLEEP. NO ACUTE CHANGES NOTED. APPEARS IN NO ACUTE DISTRESS. WILL CONTINUE TO MONITOR.
[2018-05-23] MEDS ORDERED: POLY500 PO (15:51)
[2018-05-23] MEDS ORDERED: Docu Liqui50 MG/5 ML PO (15:52)
[2018-05-23] MEDS ORDERED: INSULANPEN SC (15:52)
[2018-05-23] MEDS ORDERED: Humalog100 UNIT/3 SC (15:53)
[2018-05-23] MEDS ORDERED: LIDOCAINE PAIN1 EACH TOP (15:54)
[2018-05-23] MEDS ORDERED: NICO21TP TOP (15:55)
[2018-05-23] MEDS ORDERED: OMEPRAZOLE MAGN20 MG PO (15:55)
[2018-05-23] MEDS ORDERED: K-Phos Origina500 MG PO (15:56)
[2018-05-23] MEDS ORDERED: Acetaminophen325 M1 PO (15:58)
[2018-05-23] MEDS ORDERED: ALBU90OI6 INH (15:58)
[2018-05-23] MEDS ORDERED: TIOT18 INH (15:59)
--- NOTE | 2018-05-23 17:25 | NUR ---
PATIENT DISCHARGED WITH FAMILY FRIEND MICHAEL. WITH MICHAEL THIS RN DID TEACHING ON INSULIN. MICHAEL EXHIBITED KNOWLEDGE OF CHECKING BLOOD SUGARS AND GIVING INSULIN. PATIENT DISCHARGED WITH PORTABLE OXYGEN VIA [facility]. PATIENT WAS PROVIDED AN ACCU CHECK FROM CHUTE OPERATOR. FAMILY AND PATIENT FELT SAFE AND EAGER TO DISCHARGE HOME. NO ACUTE ISSUES NOTED.
== END 2018-05-23 17:20 | disposition home health service (06) | DRG 896 ==
LOC: ER 22:15 → MEDS 04-25 04:19 → PCU 04-25 04:19 → MEDS 04-27 21:41 → PCU 05-08 15:25 → MEDS 05-09 16:36
PROVIDERS: Emergency Medicine; Hospitalist; Internal Medicine; ADMIT Internal Medicine
DX: F10.239 Alcohol dependence with withdrawal, unspecified (principal); E43 Unspecified severe protein-calorie malnutrition; J10.00 Influenza due to other identified influenza virus with unspecified type of pneumonia; J96.01 Acute respiratory failure with hypoxia; L03.314 Cellulitis of groin; N39.0 Urinary tract infection, site not specified; F10.27 Alcohol dependence with alcohol-induced persisting dementia; F41.8 Other specified anxiety disorders; F17.210 Nicotine dependence, cigarettes, uncomplicated; E86.0 Dehydration; E11.65 Type 2 diabetes mellitus with hyperglycemia; R53.81 Other malaise; D63.8 Anemia in other chronic diseases classified elsewhere; D69.6 Thrombocytopenia, unspecified; K76.0 Fatty (change of) liver, not elsewhere classified; E83.39 Other disorders of phosphorus metabolism; R31.9 Hematuria, unspecified; B96.20 Unspecified Escherichia coli [E. coli] as the cause of diseases classified elsewhere; F09 Unspecified mental disorder due to known physiological condition; R32 Unspecified urinary incontinence; E87.6 Hypokalemia; Z22.1 Carrier of other intestinal infectious diseases; J44.9 Chronic obstructive pulmonary disease, unspecified; Z79.4 Long term (current) use of insulin
CPT/HCPCS: 36415; 51702; 71045; 71046; 74018; 74177; 80048; 80053; 81001; 82140; 82728; 82947; 83036; 83540; 83550; 83605; 83690; 83735; 83880; 84100; 84145; 84443; 85014; 85018; 85025; 85027; 85045; 86704; 86708; 86803; 86850; 86900; 86901; 86920; 87040; 87077; 87086; 87186; 87324; 87340; 87486; 87493; 87507; 87581; 87633; 87798; 92610; 93005; 93010; 94640; 94667; 94760; 94761; 96361; 96365-59; 96375; 96376; 97110; 97116; 97162; 97166; 97530; 97535; 99285-25; A9270-GY; G0480; G0515; J0696; J1170; J1650; J1885; J1940; J2060; J2405; J2543; J3010; J3370; J7030; J7050; P9016; P9612; Q9967

== ENCOUNTER 2020-06-14 02:37 | Inpatient (IN) | payer MEDICARE ==
[~2020-06-14] VITALS: Ht 167.6 cm; Wt 84.9 kg
[~2020-06-14 02:37] MED LIST changes: +ALBU90OI6 INH; +Acetaminophen325 M1 PO; +Docu Liqui50 MG/5 ML PO; +Humalog100 UNIT/3 SC; +INSULANPEN SC; +K-Phos Origina500 MG PO; +LIDOCAINE PAIN1 EACH TOP; +NICO21TP TOP; +OMEPRAZOLE MAGN20 MG PO; +POLY500 PO; +TIOT18 INH
[2020-06-14 03:09] LABS: Mean Corpuscular HGB 38.5 pg (26.0-34.0); Mean Corpuscular HGB Conc 34.1 g/dL (31.5-36.5); Mean Corpuscular Volume 113 fL (80-100); NRBC ABSOLUTE 0.07 K/mm3 (0.00-0.02); RDW Coefficient Variation 19.2 % (11.7-14.2); Red Blood Cell Count 1.22 M/mm3 (3.80-5.20)
[2020-06-14 03:14] LABS: Mean Platelet Volume 12.7 fL (9.1-12.4)
[2020-06-14 03:15] LABS: Hematocrit 13.8 % (33.0-51.0); Hemoglobin 4.7 g/dL (11.5-16.0); Platelet Count 22 K/mm3 (150-400)
[2020-06-14 03:27] LABS: Alanine Aminotransfer (ALT/SGP 14 U/L (12-78); Albumin, Blood 2.8 g/dL (3.4-5.0); Albumin/Globulin Ratio 0.9 (0.8-1.8); Alk Phos 104 U/L (50-136); Anion Gap 6 mmol/L (6-16); Aspartate Aminotrans (AST/SGOT 54 U/L (12-37); Bilirubin, Total 1.1 mg/dL (0.1-1.0); Blood Urea Nitrogen 16 mg/dL (8-24); Bun/Creatinine Ratio 29.9 (12.0-20.0); CO2, Blood 27 mmol/L (21-32); Calcium, Blood 7.9 mg/dL (8.5-10.1); Chloride, Blood 98 mmol/L (98-108); Creatinine, Blood 0.54 mg/dL (0.40-1.00); Glomerular Filtration Rate >60 (60-); Glucose, Blood 181 mg/dL (70-99); Potassium, Blood 3.5 mmol/L (3.5-5.5); Sodium, Blood 131 mmol/L (136-145); Total Protein, Blood 5.8 g/dL (6.4-8.2)
[2020-06-14 03:41] LABS: BAND PERCENT MAN 1 % (0-8); BASOPHILS PERCENT MAN 0 % (0-2); EOSINOPHILS ABSOLUTE MAN 0.07 K/mm3 (0.00-0.68); EOSINOPHILS PERCENT MAN 2 % (0-6); LYMPHOCYTES % ATYPICAL MANUAL 1 % (0-0); LYMPHOCYTES ABSOLUTE MAN 1.15 K/mm3 (0.84-5.20); LYMPHOCYTES PERCENT MAN 32 % (21-46); MONOCYTES PERCENT MAN 3 % (4-13); MYELOCYTE ABSOLUTE MAN 0.03 K/mm3 (0.00-0.00); MYELOCYTE PERCENT MAN 1 % (0-0); PLASMA CELL ABSOLUTE MAN 0.03 K/mm3 (0.00-0.00); PLASMA CELLS PERCENT MAN 1 % (0-0); SEG NEUTROPHILS PERCENT MAN 59 % (41-73); TOTAL CELLS COUNTED 100
[2020-06-14 04:05] LABS: International Normalized Ratio 1.47; Prothrombin Time Results 15.5 Sec (9.7-11.5)
[2020-06-14 04:16] LABS: Source, Urine Catheter
[2020-06-14 04:22] LABS: Bilirubin, Urine Neg (Neg); Blood, Urine 1+ (Neg); Glucose Qualitative, Urine Neg (Neg); Ketones, Urine 1+ (Neg); Leukocyte Esterase, Urine 1+ (Neg); Nitrite, Urine Neg (Neg); Protein, Urine 2+ (Neg); Specific Gravity, Urine 1.015 (1.003-1.022); Urobilinogen, Urine 3+ (Normal)
[2020-06-14 04:23] LABS: Ethanol (Alcohol), Blood, Med <3 mg/dL
[2020-06-14 04:24] LABS: Color, Urine Yellow (P-Yellow)
[2020-06-14 04:27] LABS: Appearance, Urine Clear (Clear)
[2020-06-14 04:40] LABS: Bacteria Many /hpf; Mucus Light (0-Heavy); Red Blood Cells, Urine Rare /hpf (0-2); Squamous Epithelial Cells Not Seen /hpf (Few)
[2020-06-14 05:12] LABS: SARS-Cov-2 (COVID-19) PCR, MMC NEGATIVE (NEGATIVE)
[2020-06-14 07:04] LABS: Percent Saturation 66.4 % (15.0-50.0)
--- NOTE | 2020-06-14 07:08 | NUR ---
PT ARRIVED TO ICU AT 0530, 1ST OF 2 UNITS OF BLOOD TRANSFUSING UPON ARRIVAL. PT ALERT AND ORIENTED, SPO2 >92% ON RA. SR ON MONITOR HR 80'S, SBP 90'S. PAUL PATENT AND DRAINING TO GRAVITY. PHOTOS TAKEN OF GROIN/EVA AREA WITH PT'S PERMISSION. PT REPORTING PAIN 6/10, PRN FENTANYL GIVEN PER ORDERS.
--- NOTE | 2020-06-14 07:30 | NUR ---
ASSUMED CARE PT RESTING IN BED AT THIS TIME. IV TO RAC INFUSING PRBC, IV TO LAC INFUSING PROTONIX. FLAT AFFECT AND TIRED THOUGH WILL RESPOND APPROPRIATELY. EVA AREA/LOWER ABDOMEN VERY EXCORIATED, NO DRAINAGE NOTED. DRY SCALEY FLAKEY SKIN TO BLE. REDDENED AREA TO COCCYX, NO DRAINAGE OR DRESSING AT THIS TIME THOUGH WILL WATCH CLOSELY. PT ABLE TO MOVE AND REPOSITION SELF IN BED INDEPENDENTLY. APPEARS TO BE DECONDITIONED. POOR HYGIENE. POOR SKIN TURGOR. TEMP PAUL PATENT AND DRAINING CLEAR CRISTIAN URINE. VS STABLE. WILL CONTINUE TO MONITOR.
[2020-06-14 11:53] LABS: BASOPHILS ABSOLUTE AUTO 0.01 K/mm3 (0.00-0.23); BASOPHILS PERCENT AUTO 0 % (0-2); EOSINOPHILS ABSOLUTE AUTO 0.06 K/mm3 (0.00-0.68); EOSINOPHILS PERCENT AUTO 2 % (0-6); Hemoglobin 6.4 g/dL (11.5-16.0); Mean Corpuscular HGB 35.6 pg (26.0-34.0); Mean Corpuscular HGB Conc 35.6 g/dL (31.5-36.5); Mean Platelet Volume 10.6 fL (9.1-12.4); NRBC ABSOLUTE 0.04 K/mm3 (0.00-0.02); NRBC Auto 1.4 /100 WBC (0.0-0.2); RDW Coefficient Variation 21.8 % (11.7-14.2); RDW Standard Deviation 74.3 fL (35.1-46.3); White Blood Cell Count 2.92 K/mm3 (4.00-11.30)
[2020-06-14 12:05] LABS: IMMATURE GRAN ABSOLUTE AUTO 0.11 K/mm3 (0.00-0.10); IMMATURE GRAN PERCENT AUTO 4 % (0-1); LYMPHOCYTES ABSOLUTE AUTO 1.06 K/mm3 (0.84-5.20); LYMPHOCYTES PERCENT AUTO 36 % (21-46); MONOCYTES ABSOLUTE AUTO 0.15 K/mm3 (0.16-1.47); MONOCYTES PERCENT AUTO 5 % (4-13); Mean Corpuscular Volume 100 fL (80-100); NEUTROPHILS ABSOLUTE AUTO 1.53 K/mm3 (1.96-9.15); NEUTROPHILS PERCENT AUTO 52 % (41-73)
[2020-06-14 12:06] LABS: Platelet Count 16 K/mm3 (150-400)
[2020-06-14 12:30] LABS: BAND PERCENT MAN 1 % (0-8); BASOPHILS PERCENT MAN 0 % (0-2); EOSINOPHILS PERCENT MAN 0 % (0-6); LYMPHOCYTES ABSOLUTE MAN 1.02 K/mm3 (0.84-5.20); LYMPHOCYTES PERCENT MAN 35 % (21-46); MONOCYTES ABSOLUTE MAN 0.05 K/mm3 (0.16-1.47); MONOCYTES PERCENT MAN 2 % (4-13); NEUTROPHILS ABSOLUTE MAN 1.83 K/mm3 (1.96-9.15); SEG NEUTROPHILS PERCENT MAN 62 % (41-73); TOTAL CELLS COUNTED 100
--- NOTE | 2020-06-14 17:36 | NUR ---
06/14/20 1736 Azeem Alvarado History, Chart, Medications and Allergies reviewed before start of procedure. MONITOR INTACT WITH CONTINUOUS PULSE OXIMETRY AND INTERMITTENT BP. 3-LEAD EKG REVIEWED WITH PHYSICIAN PRIOR TO START OF PROCEDURE. O2 VIA N/C INTACT THROUGHOUT SEDATION/PROCEDURE. Bite Block Placed. History, Chart, Medications and Allergies reviewed before start of procedure. Patient confirms NPO status and agrees with scheduled surgery. PATIENT DETERMINED TO BE ASA APPROPRIATE FOR MODERATE SEDATION PRIOR TO START OF PROCEDURE BY 3-LEAD EKG REVIEWED WITH PHYSICIAN PRIOR TO START OF PROCEDURE. MONITOR INTACT WITH CONTINUOUS PULSE OXIMETRY AND INTERMITTENT BP. SUPPLEMENTAL O2 TO BE TITRATED THROUGHOUT PROCEDURE TO MAINTAIN O2 SATURATION ABOVE 90%.
--- NOTE | 2020-06-14 17:45 | NUR ---
EGD DR STRATTON AND DAY SURG STAFF AT BEDSIDE. DAY CHIEF FINANCIAL OFFICER'S MEDICATED WITH FENTANYL AND VERSED FOR PROCEDURE. PT TOLERATED EGD WELL. VS REMAIN STABLE DURING PROCEDURE.
--- NOTE | 2020-06-14 18:14 | NUR ---
SHIFT SUMMARY PT RESTING COMFORTABLY IN BED. RECOVERING FROM EGD AT THIS TIME. PICC TO LONNIE INFUSING PROTONIX AND NS AT THIS TIME. RECEIVED 2 UNITS PRBC AND 1 UNIT PLATELETS TODAY. PT WAS ANXIOUS AND SCARED BEFORE PROCEDURES TODAY OTHERWISE CALM AND COOPERATIVE. SLEEPY THOUGH AROUSABLE, SLOW TO ANSWER THOUGH RESPONDS APPROPRIATELY. 2L VIA NC SAT >90%. TEMP PAUL PATENT AND DRAINING DARK YELLOW URINE TO GRAVITY. VS STABLE AT THIS TIME. WILL CONTINUE TO MONITOR.
--- NOTE | 2020-06-14 18:46 | NUR ---
DOCUMENTATION REVIEW ALL ASSESSMENTS AND NOTES FROM THIS SHIFT REVIEWED. I AGREE WITH WINDOW SHADE CUTTER DOCUMENTATION FROM THIS SHIFT.
[2020-06-14 18:51] LABS: BASOPHILS ABSOLUTE AUTO 0.01 K/mm3 (0.00-0.23); BASOPHILS PERCENT AUTO 0 % (0-2); EOSINOPHILS ABSOLUTE AUTO 0.09 K/mm3 (0.00-0.68); EOSINOPHILS PERCENT AUTO 3 % (0-6); Hematocrit 19.6 % (33.0-51.0); Hemoglobin 6.7 g/dL (11.5-16.0); Mean Corpuscular HGB 32.8 pg (26.0-34.0); Mean Corpuscular HGB Conc 34.2 g/dL (31.5-36.5); Mean Corpuscular Volume 96 fL (80-100); NRBC ABSOLUTE 0.03 K/mm3 (0.00-0.02); NRBC Auto 1.1 /100 WBC (0.0-0.2); RDW Coefficient Variation 23.4 % (11.7-14.2); RDW Standard Deviation 72.6 fL (35.1-46.3); Red Blood Cell Count 2.04 M/mm3 (3.80-5.20); White Blood Cell Count 2.75 K/mm3 (4.00-11.30)
[2020-06-14 18:53] LABS: IMMATURE GRAN ABSOLUTE AUTO 0.13 K/mm3 (0.00-0.10); IMMATURE GRAN PERCENT AUTO 5 % (0-1); LYMPHOCYTES PERCENT AUTO 33 % (21-46); MONOCYTES ABSOLUTE AUTO 0.04 K/mm3 (0.16-1.47); MONOCYTES PERCENT AUTO 2 % (4-13); NEUTROPHILS ABSOLUTE AUTO 1.58 K/mm3 (1.96-9.15); NEUTROPHILS PERCENT AUTO 57 % (41-73)
[2020-06-14 18:54] LABS: Platelet Count 22 K/mm3 (150-400)
--- NOTE | 2020-06-14 21:02 | NUR ---
ASSUMPTION OF CARE PT SLEEPING IN BED FOLLOWING EGD PROCEDURE, AWAKENS TO VERBAL STIMULI, ALERT AND ORIENTED. VITALS STABLE. NS INFUSING AT 100ML/HR, PROTONIX AT 10ML/HR. PT ABLE TO REPOSITION SELF IN BED. O2 TITRATED DOWN TO 2L FROM 4L, SP02 99%. EVA AREA, LOWER ABDOMEN, BUTTOCKS REDNESS/EXCORIATED; NO DRAINAGE NOTED, MICONAZOLE POWDER APPLIED. PT DENIES PAIN AT THIS TIME.
[2020-06-15 00:16] LABS: BASOPHILS ABSOLUTE AUTO 0.01 K/mm3 (0.00-0.23); BASOPHILS PERCENT AUTO 0 % (0-2); EOSINOPHILS ABSOLUTE AUTO 0.14 K/mm3 (0.00-0.68); EOSINOPHILS PERCENT AUTO 5 % (0-6); Hematocrit 24.4 % (33.0-51.0); Hemoglobin 8.2 g/dL (11.5-16.0); Mean Corpuscular HGB 31.8 pg (26.0-34.0); Mean Corpuscular HGB Conc 33.6 g/dL (31.5-36.5); Mean Corpuscular Volume 95 fL (80-100); Mean Platelet Volume 10.1 fL (9.1-12.4); NRBC ABSOLUTE 0.03 K/mm3 (0.00-0.02); RDW Coefficient Variation 23.2 % (11.7-14.2); RDW Standard Deviation 73.7 fL (35.1-46.3); Red Blood Cell Count 2.58 M/mm3 (3.80-5.20); White Blood Cell Count 3.14 K/mm3 (4.00-11.30)
[2020-06-15 00:23] LABS: IMMATURE GRAN ABSOLUTE AUTO 0.22 K/mm3 (0.00-0.10); IMMATURE GRAN PERCENT AUTO 7 % (0-1); LYMPHOCYTES ABSOLUTE AUTO 0.71 K/mm3 (0.84-5.20); LYMPHOCYTES PERCENT AUTO 23 % (21-46); MONOCYTES ABSOLUTE AUTO 0.14 K/mm3 (0.16-1.47); MONOCYTES PERCENT AUTO 5 % (4-13); NEUTROPHILS ABSOLUTE AUTO 1.92 K/mm3 (1.96-9.15); NEUTROPHILS PERCENT AUTO 61 % (41-73); Platelet Count 42 K/mm3 (150-400)
[2020-06-15 05:55] LABS: BASOPHILS ABSOLUTE AUTO 0.02 K/mm3 (0.00-0.23); BASOPHILS PERCENT AUTO 1 % (0-2); EOSINOPHILS ABSOLUTE AUTO 0.14 K/mm3 (0.00-0.68); EOSINOPHILS PERCENT AUTO 5 % (0-6); Hematocrit 23.6 % (33.0-51.0); Mean Corpuscular HGB 32.3 pg (26.0-34.0); Mean Corpuscular HGB Conc 33.9 g/dL (31.5-36.5); Mean Corpuscular Volume 95 fL (80-100); NRBC ABSOLUTE 0.03 K/mm3 (0.00-0.02); NRBC Auto 1.1 /100 WBC (0.0-0.2); RDW Coefficient Variation 23.3 % (11.7-14.2); RDW Standard Deviation 74.1 fL (35.1-46.3); Red Blood Cell Count 2.48 M/mm3 (3.80-5.20); White Blood Cell Count 2.85 K/mm3 (4.00-11.30)
[2020-06-15 06:13] LABS: International Normalized Ratio 1.45; Prothrombin Time Results 15.3 Sec (9.7-11.5)
[2020-06-15 06:18] LABS: IMMATURE GRAN ABSOLUTE AUTO 0.09 K/mm3 (0.00-0.10); IMMATURE GRAN PERCENT AUTO 3 % (0-1); LYMPHOCYTES ABSOLUTE AUTO 0.81 K/mm3 (0.84-5.20); LYMPHOCYTES PERCENT AUTO 28 % (21-46); MONOCYTES ABSOLUTE AUTO 0.12 K/mm3 (0.16-1.47); MONOCYTES PERCENT AUTO 4 % (4-13); NEUTROPHILS ABSOLUTE AUTO 1.67 K/mm3 (1.96-9.15); NEUTROPHILS PERCENT AUTO 59 % (41-73); Platelet Count 36 K/mm3 (150-400)
--- NOTE | 2020-06-15 06:35 | NUR ---
SHIFT SUMMARY PT RESTING COMFORTABLY IN BED, SLEPT MAJORITY OF THE NIGHT AFTER PHONE CONVERSATIONS WITH HER DAUGHTER AND . 2L NC IN PLACE TO KEEP SATS >90% WHILE ASLEEP. 1 UNIT PRBC AND 1 UNIT PLTS GIVEN THIS SHIFT. PROTONIX AND NS @ 100 ML/HR INFUSING. WOUNDS WEEPING SEROSANGUINEOUS FLUID, MICONAZOLE POWDER APPLIED DURING SHIFT. NO BM THIS SHIFT, PAUL PATENT AND DRAINING DARK CRISTIAN URINE TO GRAVITY. PT ABLE TO MOVE SELF IN BED, REPOSITIONING SELF FREQUENTLY. VSS T/O SHIFT, PRN FENTANYL GIVEN TWICE FOR PAIN.
[2020-06-15 06:38] LABS: Alanine Aminotransfer (ALT/SGP 20 U/L (12-78); Albumin, Blood 2.5 g/dL (3.4-5.0); Alk Phos 82 U/L (50-136); Anion Gap 5 mmol/L (6-16); Aspartate Aminotrans (AST/SGOT 133 U/L (12-37); Bilirubin, Total 1.3 mg/dL (0.1-1.0); Blood Urea Nitrogen 14 mg/dL (8-24); Bun/Creatinine Ratio 22.9 (12.0-20.0); CO2, Blood 27 mmol/L (21-32); Calcium, Blood 6.9 mg/dL (8.5-10.1); Chloride, Blood 106 mmol/L (98-108); Creatinine, Blood 0.61 mg/dL (0.40-1.00); Globulin, Blood 2.6 g/dL (2.2-4.0); Glomerular Filtration Rate >60 (60-); Glucose, Blood 133 mg/dL (70-99); Potassium, Blood 3.6 mmol/L (3.5-5.5); Sodium, Blood 138 mmol/L (136-145); Total Protein, Blood 5.1 g/dL (6.4-8.2)
--- NOTE | 2020-06-15 09:38 | NUR ---
Care assumed 0700 Pt sitting in bed, able to follow direction, A/O x 4, states event that caused her to come to hospital, correct date/year/location. States her stool were "dark/tarry looking" this started 1 week ago. VSS. NS infusing at 100ml/hr and protonix at 10 ml/hr via PICC to LONNIE. On 2 l via NC, SPO2 > 88%. Satya area, lower abd, glutes redness/excoriated, no drainage noted, Miconazole power applied. Pain 6/10 with movement in satya area. Physical therapy at bedside pt up to chair. Pt given bedbath.
--- NOTE | 2020-06-15 10:00 | NUR ---
Care Assumed 0700 Pt sleeping in bed, easily awakens on 2 L via NC, SPO2 > 90%. NS infusing at 100 ml/hr and Protonix at 10 ml/hr, infusing via PICC. A/O X 4. States correct location, date/time, and event. States having "dark/tarry stool" for [address] Vaz, Dr. Garcia, and medical student in to see patient. If patient has BM it can be checked for C.diff. VSS. NSR. Satya area, lower abd, redness/excoriated, some drainage, miconazole powder applied. Pt states having pain with movement in satya area, treated per emar.
--- NOTE | 2020-06-15 10:50 | NUR ---
Isolation Called infection control to confirm why patient is on isolation. Per infection control isolation is not needed due to patient having hx of C.diff in 2019 but no current diarrhea/symptoms.
[2020-06-15 12:30] LABS: BASOPHILS ABSOLUTE AUTO 0.01 K/mm3 (0.00-0.23); BASOPHILS PERCENT AUTO 0 % (0-2); EOSINOPHILS ABSOLUTE AUTO 0.07 K/mm3 (0.00-0.68); EOSINOPHILS PERCENT AUTO 3 % (0-6); Mean Corpuscular HGB 31.7 pg (26.0-34.0); Mean Corpuscular HGB Conc 33.3 g/dL (31.5-36.5); Mean Corpuscular Volume 95 fL (80-100); Mean Platelet Volume 11.1 fL (9.1-12.4); NRBC ABSOLUTE 0.03 K/mm3 (0.00-0.02); NRBC Auto 1.1 /100 WBC (0.0-0.2); RDW Coefficient Variation 23.5 % (11.7-14.2); RDW Standard Deviation 74.8 fL (35.1-46.3); Red Blood Cell Count 2.52 M/mm3 (3.80-5.20); White Blood Cell Count 2.74 K/mm3 (4.00-11.30)
[2020-06-15 12:37] LABS: IMMATURE GRAN ABSOLUTE AUTO 0.17 K/mm3 (0.00-0.10); IMMATURE GRAN PERCENT AUTO 6 % (0-1); LYMPHOCYTES ABSOLUTE AUTO 0.73 K/mm3 (0.84-5.20); LYMPHOCYTES PERCENT AUTO 27 % (21-46); MONOCYTES ABSOLUTE AUTO 0.11 K/mm3 (0.16-1.47); MONOCYTES PERCENT AUTO 4 % (4-13); NEUTROPHILS ABSOLUTE AUTO 1.65 K/mm3 (1.96-9.15); NEUTROPHILS PERCENT AUTO 60 % (41-73)
[2020-06-15 12:38] LABS: Platelet Count 31 K/mm3 (150-400)
--- NOTE | 2020-06-15 12:50 | NUR ---
PLT 31 Recieved critical value from lab. cement cutter, Francisca Baca made aware and Dr. Vaz called to update. Patients last PLT 36. No new orders recieved.
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
--- NOTE | 2020-06-15 18:22 | NUR ---
Shift Summary Pt sitting in chair or in bed, majority of day pt sat with daughter. Falls asleep easily but able to wake up quickly to verbal stimuli. A/O X 4. Pt educated on importance of hygiene, having PCP, and ETOH withdrawal. Pt with minimal understanding, daughter able to reniforce. On 2 L via NC, SPO2 > 90%, complains of SOB during turns/coughs/talking. Protonix @ 10 ml/hr and NS 100 ml/hr, infusing via PICC. PICC dressing changed. Wounds in Satya area weeping, serosanguineous fluids, miconazole powder applied during shift. NO BM during shift. Stiles patient/ draining carolin urine ( 275 ml total during shift). Pt able to move from bed to chair with two person assist. VSS. NSR. Fentanyl for PRN for satya area pain.
[2020-06-15 19:09] LABS: Hematocrit 24.4 % (33.0-51.0); Hemoglobin 8.3 g/dL (11.5-16.0); Mean Corpuscular HGB 31.8 pg (26.0-34.0); Mean Corpuscular Volume 94 fL (80-100); NRBC ABSOLUTE 0.03 K/mm3 (0.00-0.02); RDW Coefficient Variation 23.4 % (11.7-14.2); RDW Standard Deviation 73.7 fL (35.1-46.3); Red Blood Cell Count 2.61 M/mm3 (3.80-5.20); White Blood Cell Count 2.91 K/mm3 (4.00-11.30)
[2020-06-15 19:27] LABS: Platelet Count 30 K/mm3 (150-400)
--- NOTE | 2020-06-15 20:30 | NUR ---
ASSESSMENT/ASSUMED CARE PT SITTING UP IN BED WATCHING TV. C/O EVA PAIN 07/16, MED WITH FENTANYL 25 MCQ. LUNGS CLEAR BUT DECREASED ON ROOMAIR. RESP EVEN AND NONLABORED. PT C/O COUGH, WILL CALL HOSPITALIST REGARDING COUGH. DENIES SOB. HEART RATE REGULAR. BP STABLE. BT+ ABD SOFT AND NONTENDER. TAKING PO FLUIDS WITHOUT DIFFICLTY. EVA AREA RED AND INFLAMED, WILL CALL HOSPITALIST REGARDING CREAM FOR EVA AREA. PAUL CATH PATENT DRAINING CRISTIAN URINE. PICC LINE TO RIGHT UPPER ARM NS AT 100 ML/HR AND PROTONIX AT 10 ML/HR, SITE CLEAR AND DRSG INTACT. EVA CARE DONE AND POWDER APPLIED. WARM BLANKENTS APPLIED.
--- NOTE | 2020-06-15 21:00 | NUR ---
HOSPITALIST TALKED WITH TERRI ROD HOSPITALIST REGARDING RASH TO EVA AREA AND COUGH SHE IS PLACING ORDERS.
--- NOTE | 2020-06-15 21:18 | NUR ---
MD VISIT DR STRATTON HERE TO SEE PT. CHANGED PT TO MEDICAL NO TELE
[2020-06-15 23:43] LABS: Hematocrit 22.4 % (33.0-51.0); Hemoglobin 7.7 g/dL (11.5-16.0); Mean Corpuscular HGB 32.4 pg (26.0-34.0); Mean Corpuscular HGB Conc 34.4 g/dL (31.5-36.5); Mean Corpuscular Volume 94 fL (80-100); Mean Platelet Volume 9.7 fL (9.1-12.4); NRBC ABSOLUTE 0.02 K/mm3 (0.00-0.02); NRBC Auto 0.8 /100 WBC (0.0-0.2); RDW Coefficient Variation 22.7 % (11.7-14.2); RDW Standard Deviation 73.6 fL (35.1-46.3); Red Blood Cell Count 2.38 M/mm3 (3.80-5.20)
[2020-06-15 23:49] LABS: Platelet Count 25 K/mm3 (150-400)
[2020-06-16 05:35] LABS: BASOPHILS ABSOLUTE AUTO 0.01 K/mm3 (0.00-0.23); BASOPHILS PERCENT AUTO 0 % (0-2); EOSINOPHILS PERCENT AUTO 4 % (0-6); Hematocrit 22.5 % (33.0-51.0); Hemoglobin 7.7 g/dL (11.5-16.0); Mean Corpuscular HGB 32.5 pg (26.0-34.0); Mean Corpuscular HGB Conc 34.2 g/dL (31.5-36.5); Mean Corpuscular Volume 95 fL (80-100); Mean Platelet Volume 10.4 fL (9.1-12.4); NRBC ABSOLUTE 0.02 K/mm3 (0.00-0.02); NRBC Auto 0.9 /100 WBC (0.0-0.2); RDW Standard Deviation 74.4 fL (35.1-46.3); Red Blood Cell Count 2.37 M/mm3 (3.80-5.20); White Blood Cell Count 2.26 K/mm3 (4.00-11.30)
[2020-06-16 05:43] LABS: IMMATURE GRAN ABSOLUTE AUTO 0.09 K/mm3 (0.00-0.10); IMMATURE GRAN PERCENT AUTO 4 % (0-1); LYMPHOCYTES ABSOLUTE AUTO 0.66 K/mm3 (0.84-5.20); LYMPHOCYTES PERCENT AUTO 29 % (21-46); MONOCYTES ABSOLUTE AUTO 0.14 K/mm3 (0.16-1.47); MONOCYTES PERCENT AUTO 6 % (4-13); NEUTROPHILS ABSOLUTE AUTO 1.26 K/mm3 (1.96-9.15); NEUTROPHILS PERCENT AUTO 56 % (41-73)
[2020-06-16 05:44] LABS: Platelet Count 22 K/mm3 (150-400)
[2020-06-16 05:50] LABS: Anion Gap 6 mmol/L (6-16); Blood Urea Nitrogen 9 mg/dL (8-24); Bun/Creatinine Ratio 16.1 (12.0-20.0); CO2, Blood 27 mmol/L (21-32); Calcium, Blood 6.8 mg/dL (8.5-10.1); Chloride, Blood 104 mmol/L (98-108); Creatinine, Blood 0.56 mg/dL (0.40-1.00); Glomerular Filtration Rate >60 (60-); Glucose, Blood 105 mg/dL (70-99); Potassium, Blood 2.9 mmol/L (3.5-5.5); Sodium, Blood 137 mmol/L (136-145)
--- NOTE | 2020-06-16 06:05 | NUR ---
CALL TO MD CALL TO DR HARVEY REGARDING PLT 22, CONT TO MONITOR, AND POTASSIUM 2.9. RECEIVED ORDER FOR KCL 40 MEQ IV X1.
--- NOTE | 2020-06-16 06:13 | NUR ---
SHIFT SUMMARY PT RESTING QUIETLY AT THIS TIME. MED WITH FENTANYL 25 MCQ FOR PAIN TO EVA AREA. PT REFUSING TO TURN, BUT IS SHIFTING SELF AROUND IN BED. VSS. DR STRATTON INTO SEE PT DURING THE NIGHT AND CHANGED PT TO MEDICAL FLOOR STATUS WITHOUT TELE. PT ON 2 LITERS O2 VIA NC DURING THE NIGHT TO SLEEP. EVA AREA CONT RED AND INFLAMED. NO BLEEDING NOTED DURING THE NIGHT. REPORT TO ON COMING NURSE. CALL TO DR HARVEY WITH CRITICAL VALUE PLT 22, CONT TO MONITOR AND POTASSIUM 2.9. RECEIVED ORDER FOR KCL AWAITING PHARMACY.
[2020-06-16 16:10] LABS: Anion Gap 4 mmol/L (6-16); Blood Urea Nitrogen 7 mg/dL (8-24); CO2, Blood 27 mmol/L (21-32); Calcium, Blood 6.7 mg/dL (8.5-10.1); Chloride, Blood 107 mmol/L (98-108); Creatinine, Blood 0.54 mg/dL (0.40-1.00); Glomerular Filtration Rate >60 (60-); Glucose, Blood 148 mg/dL (70-99); Potassium, Blood 3.1 mmol/L (3.5-5.5); Sodium, Blood 138 mmol/L (136-145)
--- NOTE | 2020-06-16 17:19 | NUR ---
SHIFT SUMMARY PT SPENT MOST OF THE DAY IN BED. SHE GOT UP TO A CHAIR WITH OT AND THEN TO THE EOB WITH PHYSICAL THERAPY. SHE ONLY STAYED UP IN THE CHAIR FOR ABOUT AN HOUR BEFORE WANTING IN BED BECAUSE THE EXCORIATED SKIN ON HER ABDOMEN WAS HURTING. SHE HAS REQUESTED PAIN MEDICATION FOR THIS THROUGHOUT THE SHIFT. REFUSES TYLENOL. SHE IS ALERT AND ORIENTED. LUNGS ARE COARSE WITH EXPIRATORY WHEEZES. SHE GETS DYSPENIC WITH ACTIVITY BUT OXYGEN WAS ABLE TO BE TITRATED OFF THIS AFTERNOON WITH SPO2 94% ON RA. PT STILL ON CL LIQUIDS AND ONLY BARELY SIPPING AT THEM. NO BMS TODAY. EXCORIATIONS CLEANED AND OINTMENT PLACED ON THEM. DRESSINGS PLACED ON ELBOWS TO PROTECT THEM THEY ALREADY HAVE ABRASIONS ON THEM. PAUL WITH DARK, CL YELLOW URINE. POTASSIUM CURRENTLY INFUSING. CONTINUING TO MONITOR.
--- NOTE | 2020-06-17 06:08 | NUR ---
SHIFT SUMMARY PATIENT A/O, REMAINED ON RA THROUGH SHIFT WITH SATS ABOVE 95%. REPOSITIONED AND MEDICATED FOR PAIN CHARTED. PATIENT UTILIZED CALL LIGHT APPROPRIATELY, ABLE TO DRINK FLUIDS WITHOUT DIFFICULTIES INDEPENDENTLY. NYSTATIN CREAM WAS APPLIED TO GROIN PREVIOUSLY CHARTED. PAUL CATHETER REMAINS PATENT AND DRAINING CLEAR, CRISTIAN URINE. WILL REPORT TO ONCOMING RN.
[2020-06-17 06:31] LABS: Albumin, Blood 2.3 g/dL (3.4-5.0); Anion Gap 5 mmol/L (6-16); Blood Urea Nitrogen 5 mg/dL (8-24); Bun/Creatinine Ratio 10.5 (12.0-20.0); CO2, Blood 26 mmol/L (21-32); Chloride, Blood 107 mmol/L (98-108); Creatinine, Blood 0.48 mg/dL (0.40-1.00); Glomerular Filtration Rate >60 (60-); Glucose, Blood 99 mg/dL (70-99); Magnesium, Blood 2.1 mg/dL (1.6-2.4); Phosphorus, Blood 1.9 mg/dL (2.5-4.9); Potassium, Blood 3.6 mmol/L (3.5-5.5); Sodium, Blood 138 mmol/L (136-145)
[2020-06-17 07:03] LABS: BASOPHILS ABSOLUTE AUTO 0.01 K/mm3 (0.00-0.23); BASOPHILS PERCENT AUTO 0 % (0-2); EOSINOPHILS ABSOLUTE AUTO 0.13 K/mm3 (0.00-0.68); EOSINOPHILS PERCENT AUTO 5 % (0-6); Hematocrit 22.7 % (33.0-51.0); Hemoglobin 7.5 g/dL (11.5-16.0); IMMATURE GRAN ABSOLUTE AUTO 0.09 K/mm3 (0.00-0.10); IMMATURE GRAN PERCENT AUTO 3 % (0-1); LYMPHOCYTES ABSOLUTE AUTO 0.66 K/mm3 (0.84-5.20); LYMPHOCYTES PERCENT AUTO 25 % (21-46); MONOCYTES ABSOLUTE AUTO 0.27 K/mm3 (0.16-1.47); MONOCYTES PERCENT AUTO 10 % (4-13); Mean Corpuscular HGB 32.2 pg (26.0-34.0); Mean Corpuscular Volume 97 fL (80-100); Mean Platelet Volume 11.1 fL (9.1-12.4); NEUTROPHILS ABSOLUTE AUTO 1.53 K/mm3 (1.96-9.15); NEUTROPHILS PERCENT AUTO 57 % (41-73); NRBC ABSOLUTE 0.02 K/mm3 (0.00-0.02); NRBC Auto 0.7 /100 WBC (0.0-0.2); RDW Coefficient Variation 22.5 % (11.7-14.2); RDW Standard Deviation 75.4 fL (35.1-46.3); Red Blood Cell Count 2.33 M/mm3 (3.80-5.20); White Blood Cell Count 2.69 K/mm3 (4.00-11.30)
[2020-06-17 07:15] LABS: Platelet Count 18 K/mm3 (150-400)
--- NOTE | 2020-06-17 07:30 | NUR ---
ASSUMED CARE PT RESTING COMFORTABLY IN BED. PICC TO JOSE EDUARDO INFUSING NS AND PROTONIX AT THIS TIME. A&OX4. EVA AREA/GROIN REMAIN EXCORIATED WITH SMALL AMOUNT OF DRAINAGE, VERY PAINFUL. SKIN REMAINS FLAKEY AND DRY TO BLE. VS STABLE. PAUL CATH PATENT AND DRAINING CLEAR CRISTIAN URINE TO GRAVITY. NO ACUTE SIGNS OF GI BLEEDING AT THIS TIME. WILL CONTINUE TO MONITOR.
[2020-06-17 14:18] LABS: BASOPHILS ABSOLUTE AUTO 0.01 K/mm3 (0.00-0.23); BASOPHILS PERCENT AUTO 0 % (0-2); EOSINOPHILS ABSOLUTE AUTO 0.19 K/mm3 (0.00-0.68); EOSINOPHILS PERCENT AUTO 6 % (0-6); Hematocrit 23.1 % (33.0-51.0); Hemoglobin 7.7 g/dL (11.5-16.0); IMMATURE GRAN ABSOLUTE AUTO 0.13 K/mm3 (0.00-0.10); IMMATURE GRAN PERCENT AUTO 4 % (0-1); LYMPHOCYTES ABSOLUTE AUTO 0.54 K/mm3 (0.84-5.20); LYMPHOCYTES PERCENT AUTO 18 % (21-46); MONOCYTES ABSOLUTE AUTO 0.34 K/mm3 (0.16-1.47); MONOCYTES PERCENT AUTO 11 % (4-13); Mean Corpuscular HGB Conc 33.3 g/dL (31.5-36.5); Mean Corpuscular Volume 96 fL (80-100); NEUTROPHILS ABSOLUTE AUTO 1.82 K/mm3 (1.96-9.15); NEUTROPHILS PERCENT AUTO 60 % (41-73); NRBC ABSOLUTE 0.02 K/mm3 (0.00-0.02); NRBC Auto 0.7 /100 WBC (0.0-0.2); RDW Coefficient Variation 22.2 % (11.7-14.2); RDW Standard Deviation 75.7 fL (35.1-46.3); Red Blood Cell Count 2.41 M/mm3 (3.80-5.20); White Blood Cell Count 3.03 K/mm3 (4.00-11.30)
[2020-06-17 14:25] LABS: Platelet Count 35 K/mm3 (150-400)
[2020-06-17 14:30] LABS: Anion Gap 6 mmol/L (6-16); Blood Urea Nitrogen 4 mg/dL (8-24); Bun/Creatinine Ratio 7.8 (12.0-20.0); CO2, Blood 24 mmol/L (21-32); Chloride, Blood 107 mmol/L (98-108); Creatinine, Blood 0.51 mg/dL (0.40-1.00); Glomerular Filtration Rate >60 (60-); Glucose, Blood 145 mg/dL (70-99); Potassium, Blood 3.2 mmol/L (3.5-5.5); Sodium, Blood 137 mmol/L (136-145)
--- NOTE | 2020-06-17 18:23 | NUR ---
SHIFT SUMMARY PT RESTING IN BED COMFORTABLY AT THIS TIME. VERY PAINFUL TODAY, MEDICATED PER MAR. PAUL CATH IRRIGATED TODAY DUE TO PT C/O BLADDER FULLNESS. CATH REMAINS PATENT AND DRAINING CLEAR CRISTIAN URINE. RECEIVED ONE UNIT OF PLATELETS TODAY. PT UP IN ROOM WITH PT/OT TODAY. BM X2. NO ACUTE SIGNS OF GI BLEEDING AT THIS TIME. VS STABLE. WILL CONTINUE TO MONITOR.
--- NOTE | 2020-06-17 18:44 | NUR ---
DOCUMENTATION REVIEW ALL ASSESSMENTS AND NOTES REVIEWED THIS SHIFT. I AGREE WITH ALL DIRECTOR INVESTOR RELATIONS DOCUMENTATION FROM THIS SHIFT.
--- NOTE | 2020-06-17 19:35 | NUR ---
ASSUMED CARE RECEIVED BEDSIDE REPORT FROM CLAUDIA DANIEL AND WORLD GEOGRAPHY TEACHER SHIKHA; PT A&O X 4; DENIES CHEST PAIN; VSS; NSR NOTED ON MONITOR; O2 SATS >93 ON RA; PT TALKING ON PHONE W/ NO DISTRESS NOTED; IN TO SEE PT; CALL LIGHT IN REACH; BED IN LOWEST POSITION.
[2020-06-17 22:42] LABS: Anion Gap 2 mmol/L (6-16); Blood Urea Nitrogen 4 mg/dL (8-24); Bun/Creatinine Ratio 7.6 (12.0-20.0); CO2, Blood 28 mmol/L (21-32); Calcium, Blood 7.2 mg/dL (8.5-10.1); Chloride, Blood 109 mmol/L (98-108); Creatinine, Blood 0.52 mg/dL (0.40-1.00); Glomerular Filtration Rate >60 (60-); Glucose, Blood 98 mg/dL (70-99); Potassium, Blood 3.8 mmol/L (3.5-5.5); Sodium, Blood 139 mmol/L (136-145)
[2020-06-18 04:18] LABS: BASOPHILS ABSOLUTE AUTO 0.02 K/mm3 (0.00-0.23); BASOPHILS PERCENT AUTO 1 % (0-2); EOSINOPHILS ABSOLUTE AUTO 0.24 K/mm3 (0.00-0.68); EOSINOPHILS PERCENT AUTO 7 % (0-6); Hematocrit 22.5 % (33.0-51.0); Hemoglobin 7.5 g/dL (11.5-16.0); IMMATURE GRAN ABSOLUTE AUTO 0.16 K/mm3 (0.00-0.10); IMMATURE GRAN PERCENT AUTO 5 % (0-1); LYMPHOCYTES ABSOLUTE AUTO 0.81 K/mm3 (0.84-5.20); LYMPHOCYTES PERCENT AUTO 23 % (21-46); MONOCYTES ABSOLUTE AUTO 0.43 K/mm3 (0.16-1.47); MONOCYTES PERCENT AUTO 12 % (4-13); Mean Corpuscular HGB 32.1 pg (26.0-34.0); Mean Corpuscular HGB Conc 33.3 g/dL (31.5-36.5); Mean Corpuscular Volume 96 fL (80-100); Mean Platelet Volume 10.3 fL (9.1-12.4); NEUTROPHILS ABSOLUTE AUTO 1.86 K/mm3 (1.96-9.15); NEUTROPHILS PERCENT AUTO 53 % (41-73); NRBC ABSOLUTE 0.02 K/mm3 (0.00-0.02); NRBC Auto 0.6 /100 WBC (0.0-0.2); RDW Coefficient Variation 22.1 % (11.7-14.2); Red Blood Cell Count 2.34 M/mm3 (3.80-5.20); White Blood Cell Count 3.52 K/mm3 (4.00-11.30)
[2020-06-18 04:27] LABS: Platelet Count 33 K/mm3 (150-400)
[2020-06-18 04:34] LABS: Albumin, Blood 2.3 g/dL (3.4-5.0); Anion Gap 4 mmol/L (6-16); Blood Urea Nitrogen 3 mg/dL (8-24); Bun/Creatinine Ratio 6.3 (12.0-20.0); CO2, Blood 27 mmol/L (21-32); Calcium, Blood 7.2 mg/dL (8.5-10.1); Chloride, Blood 108 mmol/L (98-108); Creatinine, Blood 0.48 mg/dL (0.40-1.00); Glomerular Filtration Rate >60 (60-); Glucose, Blood 91 mg/dL (70-99); Phosphorus, Blood 2.5 mg/dL (2.5-4.9); Potassium, Blood 3.5 mmol/L (3.5-5.5); Sodium, Blood 139 mmol/L (136-145)
--- NOTE | 2020-06-18 06:02 | NUR ---
SHIFT SUMMARY PT A&O X 3-4; DENIES CHEST PAIN; VSS; O2 SATS >93 ON RA; PT C/O SEVERE PAIN TO ABDOMEN; PANUS FOLDS CLEANED THOROUGHLY, MEDICATED PER EMAR; PILLOW CASE PLACED AFTER AM CLEANING AND LINEN CHANGE; AM HGB DROP TO 7.5; UP TO BSC 1X THIS SHIFT, NO BM; PAUL PATENT & DRAINING DK.CRISTIAN/CRANBERRY URINE; CALL LIGHT IN REACH; BED IN LOWEST POSITION; WILL CONTINUE TO MONITOR CLOSELY UNTIL HAND OFF TO DAY SHIFT RN.
--- NOTE | 2020-06-18 08:15 | NUR ---
ASSUMED CARE BEDSIDE REPORT RECIEVED. PT INITIALLY RESTING QUIETLY UPON ENTERING ROOM. PT AWAKENS EASILY TO VERBAL STIMULI. PT IS ALERT, ORIENTED, AND ANSWERS QUESTIONS APPROPRIATELY. PT COMPLAINS OF PAIN TO LOWER ABD/EVA AREA WOUNDS. VITAL SIGNS STABLE. PT ON ROOM AIR. PICC TO LONNIE C/D/I. PAUL IN PLACE WITH MINIMAL AMOUNT OF CRISTIAN URINE OUTPUT NOTED. WILL CONTINUE TO MONITOR.
--- NOTE | 2020-06-18 15:53 | NUR ---
TRANSFER TO MEDICAL REPORT CALLED VIA PHONE. PT TRANSFERED TO ROOM 341 VIA BED BY BILLIE. ALL PT MEDS AND BELONGINGS TAKEN WITH PT.
--- NOTE | 2020-06-18 16:38 | NUR ---
Shift Summary Received report from Roc, ICU-RN. Patient arrived to unit via bed, self transferred c FWW and SBA at approx. 1545. A/Ox3, pleasant and cooperative. Able to make needs known. Medicated for 10/10 pannus/abdominal fold pain per EMAR with good effect. Appears disheveled and unkempt, hair in knots. Dyspenic with exertion, on RA. WCTM and report to oncoming RN.
[2020-06-19 05:41] LABS: BASOPHILS ABSOLUTE AUTO 0.02 K/mm3 (0.00-0.23); BASOPHILS PERCENT AUTO 1 % (0-2); EOSINOPHILS ABSOLUTE AUTO 0.31 K/mm3 (0.00-0.68); EOSINOPHILS PERCENT AUTO 8 % (0-6); Hematocrit 23.2 % (33.0-51.0); Hemoglobin 7.7 g/dL (11.5-16.0); Mean Corpuscular HGB 32.2 pg (26.0-34.0); Mean Corpuscular HGB Conc 33.2 g/dL (31.5-36.5); Mean Corpuscular Volume 97 fL (80-100); Mean Platelet Volume 9.8 fL (9.1-12.4); RDW Coefficient Variation 23.1 % (11.7-14.2); RDW Standard Deviation 78.3 fL (35.1-46.3); Red Blood Cell Count 2.39 M/mm3 (3.80-5.20); White Blood Cell Count 3.95 K/mm3 (4.00-11.30)
[2020-06-19 05:43] LABS: IMMATURE GRAN ABSOLUTE AUTO 0.12 K/mm3 (0.00-0.10); IMMATURE GRAN PERCENT AUTO 3 % (0-1); LYMPHOCYTES ABSOLUTE AUTO 0.59 K/mm3 (0.84-5.20); LYMPHOCYTES PERCENT AUTO 15 % (21-46); MONOCYTES ABSOLUTE AUTO 0.58 K/mm3 (0.16-1.47); MONOCYTES PERCENT AUTO 15 % (4-13); NEUTROPHILS ABSOLUTE AUTO 2.33 K/mm3 (1.96-9.15); NEUTROPHILS PERCENT AUTO 59 % (41-73); Platelet Count 44 K/mm3 (150-400)
[2020-06-19 05:53] LABS: Anion Gap 6 mmol/L (6-16); Blood Urea Nitrogen 4 mg/dL (8-24); Bun/Creatinine Ratio 8.1 (12.0-20.0); CO2, Blood 25 mmol/L (21-32); Calcium, Blood 7.6 mg/dL (8.5-10.1); Chloride, Blood 107 mmol/L (98-108); Glomerular Filtration Rate >60 (60-); Glucose, Blood 108 mg/dL (70-99); Potassium, Blood 3.4 mmol/L (3.5-5.5); Sodium, Blood 138 mmol/L (136-145)
--- NOTE | 2020-06-19 05:56 | NUR ---
CENTER SALES AND SERVICE ASSOCIATE SUMMARY PT AAOX4 AND PLEASANT. CALLS APPROPRIATELY FOR ASSISTANCE. STANDBY ASSIST TO BSC. PT STILL REPORTING PAIN IN EVA AREA FROM RASH, MEDICATED WITH NYSTATIN CREAM. GIVEN 25 MCG IV FENTANYL Q4H. PT UNABLE TO TAKE PILL FORM OF PROTONIX DUE TO REQUESTING HER MEDS BE CRUSHED IN APPLE SAUCE SO SPOKE WITH DR STRATTON AND HAD ORDER CHANGED TO LIQUID OMEPRAZOLE WHICH PT TOLERATES WELL. VSS, WILL CONTINUE TO MONITOR.
[2020-06-19 09:43] LABS: SARS-Cov-2 (COVID-19) PCR, MMC NEGATIVE (NEGATIVE)
[2020-06-19] MEDS ORDERED: BENMENLOZ MT (11:21)
[2020-06-19] MEDS ORDERED: CIPR500 PO (11:22)
[2020-06-19] MEDS ORDERED: NYSTRIT TOP (11:24)
[2020-06-19] MEDS ORDERED: Folic Acid0.8 MG PO (11:24)
[2020-06-19] MEDS ORDERED: Prilosec10 M1 PO (11:26)
[2020-06-19] MEDS ORDERED: ONDA4ODT MM (11:26)
[2020-06-19] MEDS ORDERED: VISBIOME 112.51 EACH PO (11:27)
[2020-06-19] MEDS ORDERED: B-1100 M1 PO (11:27)
[2020-06-19] MEDS ORDERED: FERSU300 PO (11:27)
[2020-06-19] MEDS ORDERED: BISA5EC PO (11:28)
[2020-06-19] MEDS ORDERED: POTCHL20ER PO (11:28)
[2020-06-19 13:07] LABS: Free Thyroxine 0.86 ng/dL (0.70-1.60)
[2020-06-19 13:09] LABS: Thyroid Stimulating Hormone 11.2 uIU/mL (0.360-4.800)
[2020-06-19] MEDS ORDERED: LORA10ER PO (13:47)
[2020-06-19] MEDS ORDERED: LEVSOD137 PO (13:47)
--- NOTE | 2020-06-19 15:16 | NUR ---
Discharge Summary [facility] to [facility], report called and given to Valdo. PICC removed by substation designerCLAUDIA hPam. Yellow packet given to skip load driver. Personal belongings sent with patient. Jen-area cleansed and triamcinolone/nystatin applied. Patient was hesitant to go to SNF, required multiple encouragement from staff and physicians for patient to be agreeable. This RN tried to teach patient how to properly cleanse jen area and apply cream; however, patient refused to learn stating "I want you to do it." [facility] by [facility] as well. W/C for transport. Lotion applied to back rash, claritin PO given. Medicated for periarea/groin/rash pain x 2 with mild relief.
== END 2020-06-19 14:32 | DRG 381 ==
LOC: ER 02:37 → ICUW 04:57 → MEDS 06-18 15:47 → ENPENDDIS 06-19 11:19 → EDPENDDIS 06-19 11:19 → MEDS 06-19 14:32
PROVIDERS: Emergency Medicine; Family Medicine; Hospitalist; Internal Medicine Gastroenterology; Student in an Organized Health Care Education/Training Program; ADMIT Family Medicine
PROC: 30233R1 Transfusion of Nonautologous Platelets into Peripheral Vein, Percutaneous Approach (ICD-10-PCS; 2020-06-14)
PROC: 02HV33Z Insertion of Infusion Device into Superior Vena Cava, Percutaneous Approach (ICD-10-PCS; 2020-06-14)
PROC: 0D738ZZ Dilation of Lower Esophagus, Via Natural or Artificial Opening Endoscopic (ICD-10-PCS; principal; 2020-06-14 17:00)
PROC: 30233N1 Transfusion of Nonautologous Red Blood Cells into Peripheral Vein, Percutaneous Approach (ICD-10-PCS; 2020-06-14 17:00)
DX: K22.11 Ulcer of esophagus with bleeding (principal); D61.818 Other pancytopenia; D62 Acute posthemorrhagic anemia; K76.6 Portal hypertension; K70.30 Alcoholic cirrhosis of liver without ascites; K25.4 Chronic or unspecified gastric ulcer with hemorrhage; K26.4 Chronic or unspecified duodenal ulcer with hemorrhage; K92.1 Melena; F41.9 Anxiety disorder, unspecified; Z20.822 Contact with and (suspected) exposure to COVID-19; F32.9 Major depressive disorder, single episode, unspecified; K22.2 Esophageal obstruction; T39.015A Adverse effect of aspirin, initial encounter; M54.5 Low back pain; E83.42 Hypomagnesemia; B35.1 Tinea unguium; R82.71 Bacteriuria; E11.9 Type 2 diabetes mellitus without complications; E87.6 Hypokalemia; R21 Rash and other nonspecific skin eruption; F09 Unspecified mental disorder due to known physiological condition; F17.210 Nicotine dependence, cigarettes, uncomplicated; D53.9 Nutritional anemia, unspecified; D69.6 Thrombocytopenia, unspecified; J44.9 Chronic obstructive pulmonary disease, unspecified; Z87.01 Personal history of pneumonia (recurrent); Z87.440 Personal history of urinary (tract) infections; Z79.1 Long term (current) use of non-steroidal anti-inflammatories (NSAID)
CPT/HCPCS: 36415; 36430; 36569; 51702; 71045; 72193; 80048; 80053; 80069; 81001; 82272; 82607; 82728; 82746; 82947; 83540; 83550; 83605; 83735; 84132; 84145; 84439; 84443; 84484; 85025; 85027; 85055; 85384; 85610; 86850; 86900; 86901; 86923; 87086; 87338; 93005; 93010; 96365-59; 96375-59; 96376-59; 97110; 97162; 97166; 97530; 97535; 99285-25; A9270; C1726; C1751; C9113; G0480; J0171; J0696; J1430; J1815; J2250; J2354; J2704; J2916; J3010; J3475; J3480; J7030; J7050; P9016; P9035; Q9967; U0004

== ENCOUNTER → 2020-08-03 | Outpatient (CLI) | payer MEDICARE ==
[~2020-08-03] MED LIST changes: +B-1100 M1 PO; +BENMENLOZ MT; +BISA5EC PO; +CIPR500 PO; +FERSU300 PO; +Folic Acid0.8 MG PO; +LEVSOD137 PO; +LORA10ER PO; +NYSTRIT TOP; +ONDA4ODT MM; +POTCHL20ER PO; +Prilosec10 M1 PO; +VISBIOME 112.51 EACH PO
[2020-08-03 20:12] LABS: Alanine Aminotransfer (ALT/SGP 29 U/L (12-78); Albumin, Blood 3.7 g/dL (3.4-5.0); Albumin/Globulin Ratio 0.8 (0.8-1.8); Alk Phos 85 U/L (50-136); Anion Gap 6 mmol/L (6-16); Aspartate Aminotrans (AST/SGOT 30 U/L (12-37); Bilirubin, Total 0.5 mg/dL (0.1-1.0); Blood Urea Nitrogen 8 mg/dL (8-24); Bun/Creatinine Ratio 16.7 (12.0-20.0); CO2, Blood 27 mmol/L (21-32); Calcium, Blood 9.8 mg/dL (8.5-10.1); Chloride, Blood 105 mmol/L (98-108); Creatinine, Blood 0.48 mg/dL (0.40-1.00); Globulin, Blood 4.7 g/dL (2.2-4.0); Glomerular Filtration Rate >60 (60-); Glucose, Blood 112 mg/dL (70-99); Potassium, Blood 3.4 mmol/L (3.5-5.5); Sodium, Blood 138 mmol/L (136-145); Total Protein, Blood 8.4 g/dL (6.4-8.2)
== END | disposition home or self-care (01) ==
LOC: LAB 18:57 → LAB SHORT 18:57
PROVIDERS: Nurse Practitioner Family
DX: E03.9 Hypothyroidism, unspecified (principal)
CPT/HCPCS: 80053

== ENCOUNTER 2021-05-30 16:58 | Inpatient (IN) | payer MEDICARE ==
[~2021-05-30] VITALS: Ht 152.4 cm; Wt 61.6 kg
[2021-05-30 17:43] LABS: Hematocrit 36.1 % (33.0-51.0); Hemoglobin 13.1 g/dL (11.5-16.0); Mean Corpuscular HGB 36.4 pg (26.0-34.0); Mean Corpuscular HGB Conc 36.3 g/dL (31.5-36.5); Mean Corpuscular Volume 100 fL (80-100); Mean Platelet Volume 8.7 fL (9.1-12.4); NRBC ABSOLUTE 0.05 K/mm3 (0.00-0.02); NRBC Auto 0.6 /100 WBC (0.0-0.2); Platelet Count 248 K/mm3 (150-400); RDW Coefficient Variation 12.7 % (11.7-14.2); RDW Standard Deviation 46.8 fL (35.1-46.3); White Blood Cell Count 8.25 K/mm3 (4.00-11.30)
[2021-05-30 18:05] LABS: BAND PERCENT MAN 7 % (0-8); BASOPHILS PERCENT MAN 0 % (0-2); EOSINOPHILS ABSOLUTE MAN 0.16 K/mm3 (0.00-0.68); EOSINOPHILS PERCENT MAN 2 % (0-6); LYMPHOCYTES ABSOLUTE MAN 0.49 K/mm3 (0.84-5.20); LYMPHOCYTES PERCENT MAN 6 % (21-46); METAMYELOCYTE ABSOLUTE MAN 0.08 K/mm3 (0.00-0.00); METAMYELOCYTE PERCENT MAN 1 % (0-0); MONOCYTES ABSOLUTE MAN 0.57 K/mm3 (0.16-1.47); MONOCYTES PERCENT MAN 7 % (4-13); NEUTROPHILS ABSOLUTE MAN 6.93 K/mm3 (1.96-9.15); SEG NEUTROPHILS PERCENT MAN 77 % (41-73); TOTAL CELLS COUNTED 100
[2021-05-30 18:11] LABS: Alanine Aminotransfer (ALT/SGP 113 U/L (12-78); Albumin, Blood 3.7 g/dL (3.4-5.0); Alk Phos 132 U/L (50-136); Anion Gap 24 mmol/L (6-16); Aspartate Aminotrans (AST/SGOT 291 U/L (12-37); Bilirubin, Total 2.9 mg/dL (0.1-1.0); Blood Urea Nitrogen 35 mg/dL (8-24); CO2, Blood 20 mmol/L (21-32); Calcium, Blood 9.1 mg/dL (8.5-10.1); Chloride, Blood 82 mmol/L (98-108); Creatinine, Blood 0.43 mg/dL (0.40-1.00); Globulin, Blood 3.7 g/dL (2.2-4.0); Glomerular Filtration Rate >60 (60-); Glucose, Blood 104 mg/dL (70-99); Potassium, Blood 3.8 mmol/L (3.5-5.5); Sodium, Blood 126 mmol/L (136-145); Total Protein, Blood 7.4 g/dL (6.4-8.2)
[2021-05-30 18:15] LABS: Ethanol (Alcohol), Blood, Med 331 mg/dL
[2021-05-30 18:49] LABS: Source, Urine Straight Cath
[2021-05-30 19:01] LABS: Appearance, Urine Clear (Clear); Blood, Urine 1+ (Neg); Color, Urine Yellow (P-Yellow); Glucose Qualitative, Urine Neg (Neg); Ketones, Urine 3+ (Neg); Leukocyte Esterase, Urine Neg (Neg); Nitrite, Urine Neg (Neg); Protein, Urine 2+ (Neg); Specific Gravity, Urine 1.015 (1.003-1.022); Urobilinogen, Urine 1+ (Normal)
[2021-05-30 19:27] LABS: Bilirubin, Urine 1+ (Neg)
[2021-05-30 19:30] LABS: Bacteria Mod /hpf; Red Blood Cells, Urine 0-2 /hpf (0-2); Squamous Epithelial Cells Not Seen /hpf (Few); White Blood Cells, Urine 0-2 /hpf (0-5)
[2021-05-30 19:55] LABS: U Amphetamine Screen Not Detected; U Barbituate Screen Not Detected; U Benzodiazapine Screen Not Detected; U Buprenorphine Screen Not Detected; U Cannabinoids Screen Not Detected; U Cocaine Screen Not Detected; U Methadone Screen Not Detected; U Methamphetamine Screen Not Detected; U Opiates Screen Not Detected; U Oxycodone Screen Not Detected; U Phencyclidine Screen Not Detected; U Propoxyphene Screen Not Detected
[2021-05-30 22:00] LABS: International Normalized Ratio 1.24; Prothrombin Time Results 12.8 Sec (9.7-11.5)
--- NOTE | 2021-05-30 23:06 | NUR ---
ADMIT PT DX c ETOH KETOSIS. ARRIVED VIA [facility] [employer] @[id number] TO RM 364, ORIENTED TO CALL LIGHT & RM. WILL MONITOR.
--- NOTE | 2021-05-31 01:29 | NUR ---
PHYSICIAN COMMUNICATION *LATE ENTRY* AT 0010, I INFORMED DR STEVENS OF CRITICAL LA @4.3, HAS INCREASED FROM 2.7 IN ER. NS @125ML/HR STARTED, NO ANTIBIOTICS OR NEW ORDERS GIVEN FOR CRITICAL LA. ALSO PT REPORTED 8/10 PAIN/DISCOMFORT IN LEGS, L HIP & BACK, DR STEVENS ORDERED 1X DOSE 15MG TORADOL, WILL MONITOR EFFECTIVENESS. AT [address] STEVENS OF CBG @86 & PT CURRENTLY NPO, IV FLUIDS CHANGED TO D5 1/2 NS @100ML/HR. WILL MONITOR.
[2021-05-31 05:42] LABS: BASOPHILS ABSOLUTE AUTO 0.03 K/mm3 (0.00-0.23); BASOPHILS PERCENT AUTO 0 % (0-2); EOSINOPHILS ABSOLUTE AUTO 0.03 K/mm3 (0.00-0.68); EOSINOPHILS PERCENT AUTO 0 % (0-6); Hematocrit 31.9 % (33.0-51.0); Hemoglobin 11.3 g/dL (11.5-16.0); IMMATURE GRAN PERCENT AUTO 3 % (0-1); LYMPHOCYTES PERCENT AUTO 7 % (21-46); MONOCYTES PERCENT AUTO 19 % (4-13); Mean Corpuscular HGB 36.2 pg (26.0-34.0); Mean Corpuscular HGB Conc 35.4 g/dL (31.5-36.5); Mean Corpuscular Volume 102 fL (80-100); Mean Platelet Volume 8.9 fL (9.1-12.4); NEUTROPHILS ABSOLUTE AUTO 5.11 K/mm3 (1.96-9.15); NEUTROPHILS PERCENT AUTO 70 % (41-73); NRBC ABSOLUTE 0.05 K/mm3 (0.00-0.02); NRBC Auto 0.7 /100 WBC (0.0-0.2); Platelet Count 207 K/mm3 (150-400); Red Blood Cell Count 3.12 M/mm3 (3.80-5.20); White Blood Cell Count 7.27 K/mm3 (4.00-11.30)
[2021-05-31 06:02] LABS: Alanine Aminotransfer (ALT/SGP 94 U/L (12-78); Albumin, Blood 3.1 g/dL (3.4-5.0); Alk Phos 117 U/L (50-136); Anion Gap 19 mmol/L (6-16); Aspartate Aminotrans (AST/SGOT 255 U/L (12-37); Bilirubin, Total 2.5 mg/dL (0.1-1.0); Blood Urea Nitrogen 27 mg/dL (8-24); Bun/Creatinine Ratio 67.3 (12.0-20.0); CO2, Blood 18 mmol/L (21-32); Calcium, Blood 7.8 mg/dL (8.5-10.1); Chloride, Blood 91 mmol/L (98-108); Globulin, Blood 3.2 g/dL (2.2-4.0); Glomerular Filtration Rate >60 (60-); Glucose, Blood 141 mg/dL (70-99); Potassium, Blood 3.6 mmol/L (3.5-5.5); Sodium, Blood 128 mmol/L (136-145); Total Protein, Blood 6.3 g/dL (6.4-8.2)
--- NOTE | 2021-05-31 07:33 | NUR ---
SHIFT SUMMARY ADMITTED FOR ETOH KETOSIS. AOX3 UPON ARRIVAL TO FLOOR. ANSWERED ORIENTATION QUESTIONS APPROPRIATE. BECAME MORE FORGETFUL LATER IN SHIFT. FORGOT SHE WAS AT HOSPITAL. REPORTED 8/10 PAIN IN BACK, LEGS, HIPS STATED SHE WAS FALLING AT HOME, MEDICATED 1X c 15MG TORADOL, NO FURTHER DISCOMFORT REPORTED. FIRST CIWA @9 FOR ANXIOUSNESS, EXTREME TREMORS TO BUE-GAVE 1MG IV ATIVAN. 2HRS LATER PT STILL VERY ANXIOUS & TREMULOUS PLUS FORGETING WHERE SHE WAS, CIWA @9 STILL, MEDICATED c 2MG IV ATIVAN & PT HAS BEEN RESTING COMFORTABLY SINCE. VSS. TELE NSR @80. BRUISING SCATTERED T/O HIPS & BACK. SACRUM & GROIN EXCORIATED, RED, SWOLLEN. +2 EDEMA TO BLE. CALL LIGHT & BED ALARM IN PLACE.
[2021-05-31 08:18] LABS: Magnesium, Blood 1.5 mg/dL (1.6-2.4); Phosphorus, Blood 2.3 mg/dL (2.5-4.9)
[2021-06-01 03:54] LABS: Hematocrit 31.7 % (33.0-51.0); Hemoglobin 11.5 g/dL (11.5-16.0); Mean Corpuscular HGB 36.7 pg (26.0-34.0); Mean Corpuscular HGB Conc 36.3 g/dL (31.5-36.5); Mean Corpuscular Volume 101 fL (80-100); Mean Platelet Volume 8.8 fL (9.1-12.4); NRBC ABSOLUTE 0.03 K/mm3 (0.00-0.02); NRBC Auto 0.7 /100 WBC (0.0-0.2); Platelet Count 135 K/mm3 (150-400); RDW Standard Deviation 48.2 fL (35.1-46.3); Red Blood Cell Count 3.13 M/mm3 (3.80-5.20); White Blood Cell Count 4.45 K/mm3 (4.00-11.30)
--- NOTE | 2021-06-01 04:24 | NUR ---
TELE RHYTHM/SHIFT SUMMARY AT 0300 I WAS NOTIFIED BY ADMISSIONS ASSISTANT PT HAD 4B RUN V TACH, 8B RUN V TACH & 3B RUN V TACH c NORMAL HEART BEATS IN BETWEEN. PT THEN SINUS TACH @108, INFORMED DR STEVENS & HE ORDERED AM MAG LAB TO BE DRAWN. PT DROWSY THIS AM, DIFFICULT FOR HER TO OPEN EYES. RR 33. REST OF VITALS STABLE. AOX2 LAST NIGHT, SELF, TOWN, FOLLOWING DIRECTIONS. WHISPERED SPEECH. DROWSY. TREMORS TO BUE WHILE AWAKE. 2200 CIWA @10, MEDICATED c 2MG IV ATIVAN. TACHYPNEA c LABORED BREATHING NOTED THIS AM. SPO2 >90%. LS DIM IN BASES c LLL PLEURAL RUB HEARD. HAS OCC NONPRODUCTIVE MOIST COUGH. +2 PITTING EDEMA @HS HAS INCREASED TO +3-4 PITTING EDEMA. LAST Q6 CBG @169. PT NPO, ASPIRATION RISK AT THIS TIME. PT SATURATES/FLOODS BED c URINE, VERY INCONT. CALL LIGHT & BED ALARM IN PLACE.
[2021-06-01 04:38] LABS: Albumin, Blood 2.9 g/dL (3.4-5.0); Anion Gap 10 mmol/L (6-16); Blood Urea Nitrogen 10 mg/dL (8-24); Bun/Creatinine Ratio 32.5 (12.0-20.0); CO2, Blood 29 mmol/L (21-32); Chloride, Blood 93 mmol/L (98-108); Creatinine, Blood 0.31 mg/dL (0.40-1.00); Glomerular Filtration Rate >60 (60-); Glucose, Blood 129 mg/dL (70-99); Iron Serum 48 ug/dL (50-170); Percent Saturation 22.4 % (15.0-50.0); Phosphorus, Blood 1.1 mg/dL (2.5-4.9); Potassium, Blood 2.8 mmol/L (3.5-5.5); Sodium, Blood 132 mmol/L (136-145); Total Iron Binding Capacity 214 ug/dL (250-450)
[2021-06-01 05:03] LABS: Ferritin, Serum 2903 ng/mL (8-252)
[2021-06-02 05:24] LABS: Magnesium, Blood 1.9 mg/dL (1.6-2.4)
--- NOTE | 2021-06-02 05:35 | NUR ---
SHIFT SUMMARY MORE ALERT THEN PREVIOUS NIGHT, STILL DROWSY. GARBLED WHISPER SPEECH, DIFFICULT TO UNDERSTAND, HOWEVER TALKING. VSS. TELE NSR. LS E/U DIM c FINE CRACKLES BASES. BLE EDEMA DECREASED TO ONLY TRACE. DENIES PAIN, N/V OR DYSPNEA. CALL LIGHT & BED ALARM IN PLACE, WILL MONITOR.
[2021-06-02 05:59] LABS: Anion Gap 10 mmol/L (6-16); Blood Urea Nitrogen 8 mg/dL (8-24); Bun/Creatinine Ratio 20.5 (12.0-20.0); CO2, Blood 36 mmol/L (21-32); Calcium, Blood 6.9 mg/dL (8.5-10.1); Chloride, Blood 86 mmol/L (98-108); Creatinine, Blood 0.39 mg/dL (0.40-1.00); Glomerular Filtration Rate >60 (60-); Glucose, Blood 119 mg/dL (70-99); Phosphorus, Blood 1.9 mg/dL (2.5-4.9); Potassium, Blood 2.3 mmol/L (3.5-5.5); Sodium, Blood 132 mmol/L (136-145)
--- NOTE | 2021-06-03 05:45 | NUR ---
Rn summary: Patient is oriented to self and place. She is very soft spoken. Pt is pleasant and cooperative. Pt is total care. Pt had incontinent stool x1. Pt has been using a purwik with good results. Pt rectal area red. There is a small open area in left buttucks/ thigh crease. Possibly from attends. Barrier cream to buttocks. Ciwa has been 7, pt has tremors, possibly chronic, and is oriented x2, also may be baseline. IV fluids continue. No edema in feet. Mepilex heel gaurds to feet. Pt needs assist in repositioning. Call light in reach, she usually just asks for help when staff checks on her. Plan is for SNF placement.
[2021-06-03 09:14] LABS: Albumin, Blood 2.6 g/dL (3.4-5.0); Anion Gap 7 mmol/L (6-16); Blood Urea Nitrogen 9 mg/dL (8-24); Bun/Creatinine Ratio 27.9 (12.0-20.0); CO2, Blood 32 mmol/L (21-32); Calcium, Blood 6.8 mg/dL (8.5-10.1); Chloride, Blood 94 mmol/L (98-108); Creatinine, Blood 0.32 mg/dL (0.40-1.00); Glomerular Filtration Rate >60 (60-); Glucose, Blood 119 mg/dL (70-99); Magnesium, Blood 2.1 mg/dL (1.6-2.4); Phosphorus, Blood 2.2 mg/dL (2.5-4.9); Potassium, Blood 2.7 mmol/L (3.5-5.5); Sodium, Blood 133 mmol/L (136-145)
--- NOTE | 2021-06-03 18:30 | NUR ---
SHIFT SUMMARY PATIENT ALERT AND ORIENTED X2 SELF AND PLACE PLEASANT AND COOPERATIVE WITH CARE. PATIENT LATEST CIWA WAS 8. MEDICATED X1 WITH LIBRIUM. THIAMINE RUNNING AT 70MLS/HR. PATIENT HAD A BED BATH. DIET UPRADED TO MECHANICAL SOFT. PO INTAKE INCREASED THIS SHIFT. PATIENT DANGLED WHILE EATING MEALS THIS AFTERNOON. MEPILIX DRESSING'S CHANGED TODAY. NO ACUTE EVENTS THIS SHIFT. VSS. CALL LIGHT WITHIN REACH.
--- NOTE | 2021-06-04 07:51 | NUR ---
Rn summary: Patient is more bright and alert this shift. She was sitting on side of bed when shift began. Pt is incontinent of urine. She c/o some cough, tylenol given per pt request. Pt became a little more agitated, Librium 50 mg given. Pt did better. Call light in reach.
[2021-06-04 09:21] LABS: Albumin, Blood 2.7 g/dL (3.4-5.0); Anion Gap 8 mmol/L (6-16); Blood Urea Nitrogen 8 mg/dL (8-24); Bun/Creatinine Ratio 21.9 (12.0-20.0); CO2, Blood 31 mmol/L (21-32); Calcium, Blood 7.8 mg/dL (8.5-10.1); Chloride, Blood 96 mmol/L (98-108); Creatinine, Blood 0.37 mg/dL (0.40-1.00); Glomerular Filtration Rate >60 (60-); Glucose, Blood 117 mg/dL (70-99); Phosphorus, Blood 2.1 mg/dL (2.5-4.9); Sodium, Blood 135 mmol/L (136-145)
--- NOTE | 2021-06-04 19:42 | NUR ---
SHIFT SUMMARY PATIENT ALERT AND ORIENTED X3, PLEASANT AND COOPERATIVE WITH CARE. MOST RECENT CIWA WAS A 2. CIWA'S Q 2 HRS THROUGOUT THE SHIFT. PATIENT HAS SHOWN SOME IMPROVEMENT SINCE YESTERDAY. UP TO THE CHAIR WITH 2 ASSIST GAITBELT PIVOT NO WALKER. PATIENT HAS BEEN TRYING TO DO BETTER WITH PO INTAKE. IT IS STILL PRETTY POOR. MEDS GIVEN CRUSHED IN APPLESAUCE PER PATIENTS REQUEST. MEDICATED X2 FOR PAIN IN MOUTH FROM DENTURES RUBBING. A FRIEND IS SUPPOSED TO BRING A PIECE FOR THEIR DENTURES TOMORROW. TELE DISCONTINUED. PATIENT HAS BEEN RETAINING URINE. BLADDER SCANNED AT SHIFT CHANGE WITH 453. REPORT GIVEN TO SILK FINISHER CLAUDIA LICEA.
[2021-06-05 05:23] LABS: Albumin, Blood 2.5 g/dL (3.4-5.0); Anion Gap 8 mmol/L (6-16); Blood Urea Nitrogen 6 mg/dL (8-24); Bun/Creatinine Ratio 16.1 (12.0-20.0); CO2, Blood 32 mmol/L (21-32); Calcium, Blood 8.2 mg/dL (8.5-10.1); Chloride, Blood 97 mmol/L (98-108); Creatinine, Blood 0.37 mg/dL (0.40-1.00); Glomerular Filtration Rate >60 (60-); Glucose, Blood 106 mg/dL (70-99); Phosphorus, Blood 2.4 mg/dL (2.5-4.9); Potassium, Blood 2.8 mmol/L (3.5-5.5); Sodium, Blood 137 mmol/L (136-145)
--- NOTE | 2021-06-05 07:33 | NUR ---
OVERNIGHT PATIENT ANXIOUS REGARDING NOT BEING ABLE TO HAVE A BOWEL MOVEMENT. PT GIVEN BROWN COW COCKTAIL (PRUNE JUICE/APPLE JUICE/BUTTER) WITH SOME IMPROVEMENT. PT HAD HARD STOOLS AND REQUESTING SOMETHING TO MAKE THEM SOFT. MD NOTIFIED WITH ORDERS. PATIENT TURNED OFTEN. ON CIWA PROTOCOL.
--- NOTE | 2021-06-05 17:58 | NUR ---
SHIFT SUMMARY: NO ACUTE EVENTS. C/O GENERALIZED PAIN, TYLENOL GIVEN X 2 WITH ADEQUATE RELIEF. BM X 1 TODAY. INCONTINENT OF BLADDER, URINE IS CRISTIAN. SCATTERED BRUISING AND PETECHIAE, SKIN TEAR ON R INNER THIGH. CIWA < 8 ALL DAY. APPETITE IS POOR. POTASSIUM AND PHOSPHATE REPLACED. CBG'S < 150 THIS SHIFT. WANTS TO GO HOME, SHE THINKS SHE'LL FEEL BETTER THERE.
--- NOTE | 2021-06-06 05:11 | NUR ---
NO ACUTE CHANGES NOTED OVERNIGHT. PATIENT INCONTINENT WITH ATTENDS ON. ON CIWA PROTOCOL. C/O GENERALIZED PAIN AND MEDICATED PER MAR. NO OTHER ACUTE CHANGES NOTED.
[2021-06-06 10:26] LABS: Alanine Aminotransfer (ALT/SGP 38 U/L (12-78); Albumin, Blood 2.3 g/dL (3.4-5.0); Albumin/Globulin Ratio 0.8 (0.8-1.8); Alk Phos 113 U/L (50-136); Anion Gap 6 mmol/L (6-16); Aspartate Aminotrans (AST/SGOT 47 U/L (12-37); Bilirubin, Total 1.1 mg/dL (0.1-1.0); Blood Urea Nitrogen 6 mg/dL (8-24); Bun/Creatinine Ratio 18.9 (12.0-20.0); CO2, Blood 33 mmol/L (21-32); Calcium, Blood 8.2 mg/dL (8.5-10.1); Chloride, Blood 100 mmol/L (98-108); Creatinine, Blood 0.32 mg/dL (0.40-1.00); Globulin, Blood 2.9 g/dL (2.2-4.0); Glomerular Filtration Rate >60 (60-); Glucose, Blood 109 mg/dL (70-99); Sodium, Blood 139 mmol/L (136-145); Total Protein, Blood 5.2 g/dL (6.4-8.2)
--- NOTE | 2021-06-06 18:21 | NUR ---
PATIENT STILL ON CIWA. SCORES HAVE BEEN MILD. SHE DOES HAVE A TREMOR. SHE COMPLAINS OF PAIN IN HER LOWER GUMS. THIS IS BECAUSE SHE ISN'T USED TO WEARING HER TEETH. APPETITE IS FAIR. SHE EATS A LITTLE AT EACH MEAL. SPPECH THERAPY WILL DO AN EVAL TOMORROW. SHE HAS A HARD TIME SWALLOWING HER MEDICATIONS. HEEL PROTECTOR BANDAGES CHANGED TODAY. NO OPEN AREA UNDERNEATH. PATIENT HAS SOME ANXIETY BUT SAYS THAT SHE ALWAYS HAS UNDERLYING ANXIETY AND DOESN'T BLAME WITHDRAWAL. SHE IS COOPERATIVE WITH CARES. PT WORKED WITH PATIENT THIS AM.
--- NOTE | 2021-06-07 05:08 | NUR ---
PATIENT HEAVILY INCONTINET REQUIRING OFTEN FULL LINEN CHANGE. ON A COUPLE OCCASSIONS PATIENT FINGER NAILS FOUND WITH STOOL PATIENT WOULD PLACE HER HANDS IN HER ATTEND. CIWA PROTOCOL MAINTAINED. PATIENT C/O PAIN AND MEDICATED PER APR. PATIENT ALERT TO SELF, PLACE, SITUATION AND YEAR. VS STABLE.
[2021-06-07 05:42] LABS: Alanine Aminotransfer (ALT/SGP 40 U/L (12-78); Albumin, Blood 2.6 g/dL (3.4-5.0); Albumin/Globulin Ratio 0.7 (0.8-1.8); Alk Phos 132 U/L (50-136); Anion Gap 5 mmol/L (6-16); Aspartate Aminotrans (AST/SGOT 51 U/L (12-37); Bilirubin, Total 1.1 mg/dL (0.1-1.0); Blood Urea Nitrogen 7 mg/dL (8-24); Bun/Creatinine Ratio 20.7 (12.0-20.0); CO2, Blood 33 mmol/L (21-32); Calcium, Blood 8.8 mg/dL (8.5-10.1); Chloride, Blood 101 mmol/L (98-108); Creatinine, Blood 0.34 mg/dL (0.40-1.00); Globulin, Blood 3.5 g/dL (2.2-4.0); Glomerular Filtration Rate >60 (60-); Glucose, Blood 110 mg/dL (70-99); Potassium, Blood 3.2 mmol/L (3.5-5.5); Sodium, Blood 139 mmol/L (136-145); Total Protein, Blood 6.1 g/dL (6.4-8.2)
--- NOTE | 2021-06-07 07:24 | NUR ---
ASSUMED CARE: PT RESTING QUIETLY AT THIS TIME. NO ACUTE NEEDS OR CONCERNS.
--- NOTE | 2021-06-07 10:46 | NUR ---
PT'S DAUGHTER CHILO CALLED ASKING FOR UPDATE AND STATED THAT SHE WAS POINT OF CONTACT AND WANTED DISTRIBUTION SUPERINTENDENT TO UPDATE HER. SPOKE WITH DISTRIBUTION SUPERINTENDENT WHO STATED SHE SPOKE WITH PT AND THEY ARE AWAITING PLACEMENT FOR PT. NO ACUTE NEEDS AT THIS TIME.
[2021-06-07] MEDS ORDERED: Enulose10 GM/15 M PO (10:51)
[2021-06-07] MEDS ORDERED: MULVITA PO (10:52)
[2021-06-07] MEDS ORDERED: NICO21TP TOP (10:52)
[2021-06-07] MEDS ORDERED: PANT20 PO (10:53)
[2021-06-07] MEDS ORDERED: K-TAB ER20 ME2 PO (10:54)
[2021-06-07 16:53] LABS: Influenza A, PCR NEGATIVE (NEGATIVE); Influenza B, PCR NEGATIVE (NEGATIVE); Resp Syncytial Virus, PCR NEGATIVE (NEGATIVE); SARS-Cov-2 (COVID-19) PCR, MMC NEGATIVE (NEGATIVE)
--- NOTE | 2021-06-07 17:20 | NUR ---
REPORT GIVEN TO VIVIAN AT [facility]. PT TRANSFERRED VIA WHEEL CHAIR BY [facility]. IV DC'D WNL. NO FURTHER NEEDS OR CONCERNS AT THIS TIME.
== END 2021-06-07 17:10 | DRG 897 ==
LOC: ER 16:58 → MEDS 16:59 → ENPENDDIS 06-07 11:10 → MEDS 06-07 17:10
PROVIDERS: Emergency Medicine; Internal Medicine; ADMIT Internal Medicine
PROC: HZ2ZZZZ Detoxification Services for Substance Abuse Treatment (ICD-10-PCS; principal; 2021-05-31)
DX: F10.231 Alcohol dependence with withdrawal delirium (principal); E87.2 Acidosis; K76.6 Portal hypertension; G93.49 Other encephalopathy; E87.1 Hypo-osmolality and hyponatremia; F10.27 Alcohol dependence with alcohol-induced persisting dementia; E86.0 Dehydration; R47.81 Slurred speech; K70.30 Alcoholic cirrhosis of liver without ascites; E88.89 Other specified metabolic disorders; E87.6 Hypokalemia; T73.0XXA Starvation, initial encounter; E83.39 Other disorders of phosphorus metabolism; G89.29 Other chronic pain; M54.2 Cervicalgia; Z20.822 Contact with and (suspected) exposure to COVID-19; M54.9 Dorsalgia, unspecified; K70.10 Alcoholic hepatitis without ascites; K59.00 Constipation, unspecified; Y90.8 Blood alcohol level of 240 mg/100 ml or more; G31.84 Mild cognitive impairment of uncertain or unknown etiology; E87.70 Fluid overload, unspecified; R62.7 Adult failure to thrive; F32.A Depression, unspecified; F10.229 Alcohol dependence with intoxication, unspecified; F41.9 Anxiety disorder, unspecified; E11.9 Type 2 diabetes mellitus without complications; F09 Unspecified mental disorder due to known physiological condition; F17.210 Nicotine dependence, cigarettes, uncomplicated; Z98.890 Other specified postprocedural states; Z68.29 Body mass index [BMI] 29.0-29.9, adult; Z79.2 Long term (current) use of antibiotics; Z99.3 Dependence on wheelchair; Z79.890 Hormone replacement therapy; Z87.01 Personal history of pneumonia (recurrent); Z87.440 Personal history of urinary (tract) infections; Z79.899 Other long term (current) drug therapy
CPT/HCPCS: 0241U; 36415; 51701; 70450; 71045; 80053; 80069; 81001; 82010; 82140; 82607; 82728; 82746; 82947; 83036; 83540; 83550; 83605; 83735; 84100; 84443; 85025; 85027; 85610; 87086; 92526; 92610; 93005; 93010; 96365; 96372; 96375; 96376; 97110; 97162; 97166; 97530; 97535; 99285-25; A9270; C9113; G0378; G0480; J1650; J1885; J1940; J2060; J3411; J3475; J3480; J7030; J7042; J7060